=== PATIENT | female | born 1985 | race Caucasian/White ===

== ENCOUNTER 2016-10-01 08:50 | Emergency (ER) | payer OTHER ==
[2016-10-01] MEDS ORDERED: BACLOFEN 10 MG TAB PO STA (09:34)
[2016-10-01] MEDS ORDERED: cloNIDine HCL 0.1 MG TAB PO STA (09:34)
[2016-10-01 09:47] VITALS: BP 118/52; PULSE 51; RESP 16; TEMP 98.7
--- NOTE | 2016-10-01 09:47 | ED ---
General Adult HPI - General Chief complaint: Recheck/Abnormal Lab/Rx Stated complaint: flu like symptoms Time Seen by Provider: 10/01/16 09:28 Source: patient, RN notes reviewed Mode of arrival: ambulatory Limitations: no limitations - History of Present Illness Initial comments: Patient is a 31-year-old female who presents emergency room today with chief complaint withdrawal symptoms. 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 Patient states last dose yesterday. States waking up with shakes chills this morning. Denies any nausea vomiting. Denies any other complaints associated symptoms. Patient denies any recent fever, chills, shortness of breath, chest pain, back pain, abdominal pain, nausea or vomiting, numbness or tingling, dysuria or hematuria, constipation or diarrhea, headaches or visual changes, or any other complaints. - Related Data Previous Rx's Medication Instructions Recorded Albuterol Inhaler [Ventolin Hfa 1 - 2 puff INHALATION Q4-6H PRN #1 07/15/16 Inhaler] inhaler Azithromycin [Zithromax Z-pack] 0 mg PO DIRECTED #6 tab 07/15/16 Benzonatate [Tessalon Perles] 100 mg PO TID PRN #12 capsule 07/15/16 predniSONE 20 mg PO DIRECTED #11 tab 07/15/16 Benzonatate [Tessalon Perles] 100 mg PO TID PRN #15 cap 08/23/16 Baclofen [Lioresal] 5 mg PO TID #15 tablet 10/01/16 cloNIDine HCL [Catapres] 0.1 mg PO BID #10 tab 10/01/16 Allergies Allergy/AdvReac Type Severity Reaction Status Date / Time No Known Allergies Allergy Verified 08/23/16 14:43 Review of Systems ROS Statement: Those systems with pertinent positive or pertinent negative responses have been documented in the HPI. ROS Other: All systems not noted in ROS Statement are negative. Past Medical History Additional Past Medical History / Comment(s): heroin use History of Any Multi-Drug Resistant Organisms: None Reported Past Surgical History: Appendectomy Additional Past Surgical History / Comment(s): 2004 Past Anesthesia/Blood Transfusion Reactions: No Reported Reaction Past Psychological History: No Psychological Hx Reported Smoking Status: Current every day smoker Past Alcohol Use History: None Reported Past Drug Use History: Heroin - Past Family History Father Family Medical History: No Reported History General Exam - General Exam Comments Initial Comments: General: The patient is awake and alert, in no distress, and does not appear acutely ill. Eye: Pupils are equal, round and reactive to light, extra-ocular movements are intact. No nystagmus. There is normal conjunctiva bilaterally. No signs of icterus. Ears, nose, mouth and throat: There are moist mucous membranes and no oral lesions. Neck: The neck is supple, there is no tenderness or JVD. Cardiovascular: There is a regular rate and rhythm. No murmur, rub or gallop is appreciated. Respiratory: Lungs are clear to auscultation, respirations are non-labored, breath sounds are equal. No wheezes, stridor, rales, or rhonchi. Musculoskeletal: Normal ROM, no tenderness. Strength 5/5. Sensation intact. Pulses equal bilaterally 2+. Neurological: A&O x 3. CN II-XII intact, There are no obvious motor or sensory deficits. Coordination appears grossly intact. Speech is normal. Skin: Skin is warm and dry and no rashes or lesions are noted. Psychiatric: Cooperative, appropriate mood & affect, normal judgment. Limitations: no limitations Course Vital Signs 10/01/16 09:01 Temperature 98.2 F Pulse Rate 65 Respiratory 18 Rate Blood Pressure 102/71 O2 Sat by Pulse 100 Oximetry Medical Decision Making - Medical Decision Making Patient be treated with clonidine and baclofen here the emergency room given prescription for home with. Patient advised return if any symptoms increase worsen or for any other concerns. Disposition Clinical Impression: Opiate withdrawal Disposition: HOME SELF-CARE Condition: Good Instructions: Narcotic Abuse (ED) Additional Instructions: Please use medication as discussed. Please follow-up with family doctor in the next 2 days of symptoms have not improved. Please return to emergency room if the symptoms increase or worsen or for any other concerns. Prescriptions: Baclofen [Lioresal] 5 mg PO TID #15 tablet cloNIDine HCL [Catapres] 0.1 mg PO BID #10 tab Referrals: Adelia Foster MD [Primary Care Provider] - 1-2 days Time of Disposition: 09:46
== END 2016-10-01 09:57 | disposition home or self-care (01) ==
LOC: EC 08:50
DX: F11.23 Opioid dependence with withdrawal (principal); F17.200 Nicotine dependence, unspecified, uncomplicated
CPT/HCPCS: 76705; 99283

== ENCOUNTER → 2016-10-01 | Outpatient (CLI) | payer OTHER ==
--- NOTE | 2016-10-01 08:31 | US ---
EXAMINATION TYPE: US liver DATE OF EXAM: 10/01/2016 8:03 AM COMPARISON: CT on PACS CLINICAL HISTORY: Hepatitis C. EXAM MEASUREMENTS: Liver Length: 14.7cm Gallbladder Wall: 0.1cm CBD: 0.4cm Right Kidney: 9.9 x 5.5 x 4.1cm ANATOMY: TECHNOLOGIST IMPRESSION: Pancreas: Within normal limits Liver: Within normal limits Gallbladder: Within normal limits Evidence for sonographic Fairchild's sign: no CBD: Within normal limits Right Kidney: Within normal limits IMPRESSION: 1. Normal right upper quadrant ultrasound. 2. Normal liver
== END | disposition home or self-care (01) ==
LOC: RADUSWWP 07:41
PROVIDERS: ATTEND Internal Medicine
DX: B18.2 Chronic viral hepatitis C (principal)
CPT/HCPCS: 76705

== ENCOUNTER → 2017-07-24 | Outpatient (CLI) | payer OTHER ==
[2017-07-24 12:06] LABS: Basophils % (A) 1 %; CH 30.5; CHCM 32.1; Eosinophils # (A) 0.1 k/uL (0-0.7); Eosinophils % (A) 1 %; HCT 36.5 % (34.0-46.0); HDW 2.65; HGB 12.1 gm/dL (11.4-16.0); Luc # (Auto) 0.14; Luc % (Auto) 3; Lymphocytes % (A) 34 %; MCH 31.5 pg (25.0-35.0); MCV 95.6 fL (80.0-100.0); Monocytes # (A) 0.4 k/uL (0-1.0); Monocytes % (A) 7 %; Neutrophils # (A) 3.2 k/uL (1.3-7.7); Neutrophils % (A) 55 %; RBC 3.82 m/uL (3.80-5.40); RDW 14.3 % (11.5-15.5); WBC 5.8 k/uL (3.8-10.6); WBC (Perox) 6.05
[2017-07-24 12:30] LABS: ALT 76 U/L (9-52); AST 42 U/L (14-36); Alkaline Phosphatase 47 U/L (38-126); Anion Gap 5 mmol/L; Blood Urea Nitrogen 17 mg/dL (7-17); Calcium 9.6 mg/dL (8.4-10.2); Carbon Dioxide 28 mmol/L (22-30); Chloride 107 mmol/L (98-107); Glucose 74 mg/dL (74-99); Non-African American GFR(MDRD) >60 (>60 ml/min/1.73 sqM); Potassium 4.7 mmol/L (3.5-5.1); Sodium 140 mmol/L (137-145); Total Bilirubin 0.6 mg/dL (0.2-1.3); Total Protein 7.3 g/dL (6.3-8.2)
[2017-07-26 10:46] LABS: HCV Qualitative Result DETECTED (Not detected)
== END | disposition home or self-care (01) ==
LOC: LABWHC1 11:15
DX: B18.2 Chronic viral hepatitis C (principal)
CPT/HCPCS: 36415; 80053; 85025; 87522; 87902

== ENCOUNTER 2018-08-09 02:40 | Emergency (ER) | payer OTHER ==
[2018-08-09 02:47] VITALS: BP 112/62; PULSE 75; RESP 18; TEMP 98.4
--- NOTE | 2018-08-09 02:50 | ED ---
Fall HPI - General Chief Complaint: Fall Stated Complaint: ETOH/Fall Time Seen by Provider: 08/09/18 02:41 Source: EMS Mode of arrival: EMS - History of Present Illness Initial Comments: This is a 33-year-old female who presents emergency department after a reported fall. The patient apparently has been drinking alcohol this evening and was having difficulty with ambulation. She was with a friend when she was stumbling and fell and hit her head. The patient states that she did not lose consciousness. She states that she does have pain in the posterior scalp. Denies any headache, nausea, or vomiting. She is otherwise been speaking normally and moving all extremities per EMS. She states that she does not take a blood thinner. She denies any other injuries. She states that she was brought here just to be checked out. - Related Data Previous Rx's Medication Instructions Recorded Albuterol Inhaler [Ventolin Hfa 1 - 2 puff INHALATION Q4-6H PRN #1 07/15/16 Inhaler] inhaler Azithromycin [Zithromax Z-pack] 0 mg PO DIRECTED #6 tab 07/15/16 Benzonatate [Tessalon Perles] 100 mg PO TID PRN #12 capsule 07/15/16 predniSONE 20 mg PO DIRECTED #11 tab 07/15/16 Benzonatate [Tessalon Perles] 100 mg PO TID PRN #15 cap 08/23/16 Baclofen [Lioresal] 5 mg PO TID #15 tablet 10/01/16 cloNIDine HCL [Catapres] 0.1 mg PO BID #10 tab 10/01/16 Allergies Allergy/AdvReac Type Severity Reaction Status Date / Time No Known Allergies Allergy Verified 08/09/18 02:47 Review of Systems ROS Statement: Those systems with pertinent positive or pertinent negative responses have been documented in the HPI. ROS Other: All systems not noted in ROS Statement are negative. Past Medical History Additional Past Medical History / Comment(s): heroin use History of Any Multi-Drug Resistant Organisms: None Reported Past Surgical History: Appendectomy Additional Past Surgical History / Comment(s): 2004 Past Anesthesia/Blood Transfusion Reactions: No Reported Reaction Past Psychological History: No Psychological Hx Reported Smoking Status: Current every day smoker Past Alcohol Use History: Daily Past Drug Use History: Heroin - Past Family History Father Family Medical History: No Reported History General Exam - General Exam Comments Initial Comments: Constitutional: Awake alert Appears comfortable Head: Normocephalic, there is a small hematoma to the right posterior scalp Eyes: no conjunctival injection No scleral icterus EOMI, pupils are 4 mm reactive bilaterally Neck: No JVD Supple Heart: Regular rate rhythm normal S1-S2 no murmurs Lungs: Clear to auscultation bilaterally No wheezing No rales Abdomen: Soft nondistended nontender Extremities: Non edematous DP pulses intact Radial pulses intact Neuro: A&Ox3, patient has intoxicated speech however is able to answer questions appropriately, moves all extremities without difficulty. No focal neurologic deficits Psych: Appropriate mood and affect Limitations: no limitations Course Vital Signs 08/09/18 02:41 Temperature 98.4 F Pulse Rate 75 Respiratory 18 Rate Blood Pressure 112/62 O2 Sat by Pulse 100 Oximetry Disposition Clinical Impression: Alcohol intoxication, Scalp hematoma Disposition: HOME SELF-CARE Condition: Stable Instructions: Head Injury (ED) Is patient prescribed a controlled substance at d/c from ED?: No Referrals: None,Stated [Primary Care Provider] - 1-2 days
--- NOTE | 2018-08-09 03:36 | CT ---
EXAMINATION TYPE: CT brain wo con DATE OF EXAM: 08/09/2018 COMPARISON: None HISTORY: pt. states she fell and hit her head;denies any LOC CT DLP: 1083.4 mGycm. Automated Exposure Control for Dose Reduction was Utilized. TECHNIQUE: CT scan of the head is performed without contrast. FINDINGS: Ventricles and sulci appear normal. There is no mass effect nor midline shift. There is no sign of intracranial hemorrhage. The calvarium is intact. There is right parietal occipital scalp hem atoma. IMPRESSION: Normal CT scan of the brain. Right-sided scalp hematoma.
== END 2018-08-09 03:45 | disposition home or self-care (01) ==
LOC: EC 02:40
DX: S00.03XA Contusion of scalp, initial encounter (principal); F10.129 Alcohol abuse with intoxication, unspecified; F17.200 Nicotine dependence, unspecified, uncomplicated; W01.10XA Fall on same level from slipping, tripping and stumbling with subsequent striking against unspecified object, initial encounter; Y92.480 Sidewalk as the place of occurrence of the external cause
CPT/HCPCS: 70450; 99284

== ENCOUNTER 2018-09-25 17:10 | Emergency (ER) | payer OTHER ==
[2018-09-25 17:31] VITALS: TEMP 98.5
[2018-09-25 19:05] LABS: Basophils # (A) 0.1 k/uL (0-0.2); Basophils % (A) 1 %; Eosinophils # (A) 0.1 k/uL (0-0.7); Eosinophils % (A) 2 %; HCT 41.2 % (34.0-46.0); HGB 13.9 gm/dL (11.4-16.0); Lymphocytes % (A) 24 %; MCH 31.9 pg (25.0-35.0); MCHC 33.8 g/dL (31.0-37.0); MCV 94.3 fL (80.0-100.0); Mean Platelet Volume 7.8; Monocytes # (A) 0.4 k/uL (0-1.0); Monocytes % (A) 5 %; Neutrophils # (A) 5.6 k/uL (1.3-7.7); Neutrophils % (A) 67 %; Platelet Count 234 k/uL (150-450); RBC 4.36 m/uL (3.80-5.40); RDW 14.1 % (11.5-15.5); WBC 8.3 k/uL (3.8-10.6)
--- NOTE | 2018-09-25 19:18 | US ---
EXAMINATION TYPE: US transvaginal DATE OF EXAM: 09/25/2018 COMPARISON: NONE CLINICAL HISTORY: Pain. Pain and bleeding. TECHNIQUE: Transvaginal (TV). EXAM MEASUREMENTS: Uterus: 9.2 x 5.3 x 6.3 cm Endometrial Stripe: 1.0 cm Right Ovary: 7.1 x 3.5 x 4.4 cm Left Ovary: 4.1 x 2.7 x 2.9 cm 1. Uterus: Anteverted wnl 2. Endometrium: wnl 3. Right Ovary: Enlarged multiple cysts seen. Largest with a septation measuring 4.5 x 2.9 x 3.8cm. 4. Left Ovary: wnl Spectral, color and waveform doppler imaging shows good arterial and venous flow within the ovaries ; there is no evidence for ovarian torsion. 5. Bilateral Adnexa: wnl 6. Posterior cul-de-sac: wnl IMPRESSION: Multiple right ovarian cysts. No evidence of ovarian torsion. Normal uterus and endometri um.
[2018-09-25 19:20] LABS: ALT 77 U/L (9-52); AST 64 U/L (14-36); Albumin 4.2 g/dL (3.5-5.0); Alkaline Phosphatase 58 U/L (38-126); Anion Gap 9 mmol/L; Blood Urea Nitrogen 21 mg/dL (7-17); Calcium 10.1 mg/dL (8.4-10.2); Carbon Dioxide 27 mmol/L (22-30); Chloride 106 mmol/L (98-107); Glucose 93 mg/dL (74-99); Potassium 5.1 mmol/L (3.5-5.1); Sodium 142 mmol/L (137-145); Total Bilirubin 0.5 mg/dL (0.2-1.3); Total Protein 7.5 g/dL (6.3-8.2)
[2018-09-25 19:34] LABS: HCG,Qualitative Serum Detected
--- NOTE | 2018-09-25 20:16 | ED ---
Female Urogenital HPI - General Chief complaint: Vaginal Bleeding Stated complaint: vaginal bleeding Time Seen by Provider: 09/25/18 17:47 Source: patient, RN notes reviewed, old records reviewed Mode of arrival: ambulatory Limitations: no limitations - History of Present Illness Initial comments: 33-year-old female presents response to plan of vaginal bleeding for 1 month. She reports intermittent bleeding. Patient is a Her last menstrual period Was in July. Patient states she is concerned that she may possibly be having miscarriages. She had no tests at home for the past 2 months. Patient states that she's had some generalized of lower cramping. She states that she's been having prolonged bleeding for the past month. She denies any fevers or chills. She denies any change in urination or bowel habits. Last Menstrual Period: 08/22/18 - Related Data Home Medications Medication Instructions Recorded Confirmed No Known Home Medications 09/25/18 09/25/18 Allergies Allergy/AdvReac Type Severity Reaction Status Date / Time No Known Allergies Allergy Verified 09/25/18 18:37 Review of Systems ROS Statement: Those systems with pertinent positive or pertinent negative responses have been documented in the HPI. ROS Other: All systems not noted in ROS Statement are negative. Past Medical History Additional Past Medical History / Comment(s): heroin use History of Any Multi-Drug Resistant Organisms: None Reported Past Surgical History: Appendectomy Additional Past Surgical History / Comment(s): 2005 Past Anesthesia/Blood Transfusion Reactions: No Reported Reaction Past Psychological History: No Psychological Hx Reported Smoking Status: Current every day smoker Past Alcohol Use History: Daily Past Drug Use History: Heroin - Past Family History Father Family Medical History: No Reported History General Exam - General Exam Comments Initial Comments: (33-year-old female. Alert and oriented. No distress. Limitations: no limitations Head exam: Present: atraumatic, normocephalic, normal inspection Eye exam: Present: normal appearance, PERRL, EOMI. Absent: scleral icterus, conjunctival injection, periorbital swelling ENT exam: Present: normal exam, mucous membranes moist Neck exam: Present: normal inspection. Absent: tenderness, meningismus, lymphadenopathy Respiratory exam: Present: normal lung sounds bilaterally. Absent: respiratory distress, wheezes, rales, rhonchi, stridor Cardiovascular Exam: Present: regular rate, normal rhythm, normal heart sounds. Absent: systolic murmur, diastolic murmur, rubs, gallop, clicks GI/Abdominal exam: Present: soft, normal bowel sounds. Absent: distended, tenderness, guarding, rebound, rigid External exam: Present: normal external exam Speculum exam: Present: vaginal bleeding. Absent: normal speculum exam By manual exam: Present: normal by manual exam. Absent: cervical motion tenderness, adnexal tenderness, adnexal mass, uterine enlargement Extremities exam: Present: normal inspection, full ROM, normal capillary refill. Absent: tenderness, pedal edema, joint swelling, calf tenderness Back exam: Present: normal inspection Neurological exam: Present: alert, oriented X3, CN II-XII intact Psychiatric exam: Present: normal affect, normal mood Skin exam: Present: warm, dry, intact, normal color. Absent: rash Course Vital Signs 09/25/18 09/25/18 17:29 21:30 Temperature 98.5 F Pulse Rate 74 56 L Respiratory 20 16 Rate Blood Pressure 110/74 103/65 O2 Sat by Pulse 99 99 Oximetry Medical Decision Making - Medical Decision Making 33 year old female with one month of vaginal bleeding. Patient HCG qualititavie was positive, serum quant is 280. A positive blood type. She does have bleeding on pelvic exam. Patient US shows no IUP, and evidence of R ovarian cyst. Patient case discussed with Dr. Houston. Patient is likely having threatened miscarriage. She has seen Dr. Caceres for past , discussed follow up. Dr. Houston did not want to call OB at this time, as patient already has had care with Dr. Caceres. Discussed return parameters. Written for repeat HCG. - Lab Data Result diagrams: 09/25/18 18:26 09/25/18 18:26 Lab Results 09/25/18 09/25/18 09/25/18 Range/Units 18:26 18:26 18:26 WBC 8.3 (3.8-10.6) k/uL RBC 4.36 (3.80-5.40) m/uL Hgb 13.9 (11.4-16.0) gm/dL Hct 41.2 (34.0-46.0) % MCV 94.3 (80.0-100.0) fL MCH 31.9 (25.0-35.0) pg MCHC 33.8 (31.0-37.0) g/dL RDW 14.1 (11.5-15.5) % Plt Count 234 (150-450) k/uL Neutrophils % 67 % Lymphocytes % 24 % Monocytes % 5 % Eosinophils % 2 % Basophils % 1 % Neutrophils # 5.6 (1.3-7.7) k/uL Lymphocytes # 2.0 (1.0-4.8) k/uL Monocytes # 0.4 (0-1.0) k/uL Eosinophils # 0.1 (0-0.7) k/uL Basophils # 0.1 (0-0.2) k/uL Sodium 142 (137-145) mmol/L Potassium 5.1 (3.5-5.1) mmol/L Chloride 106 (98-107) mmol/L Carbon Dioxide 27 (22-30) mmol/L Anion Gap 9 mmol/L BUN 21 H (7-17) mg/dL Creatinine 0.70 (0.52-1.04) mg/dL Est GFR (CKD-EPI)AfAm >90 (>60 ml/min/1.73 sqM) Est GFR (CKD-EPI)NonAf >90 (>60 ml/min/1.73 sqM) Glucose 93 (74-99) mg/dL Calcium 10.1 (8.4-10.2) mg/dL Total Bilirubin 0.5 (0.2-1.3) mg/dL AST 64 H (14-36) U/L ALT 77 H (9-52) U/L Alkaline Phosphatase 58 (38-126) U/L Total Protein 7.5 (6.3-8.2) g/dL Albumin 4.2 (3.5-5.0) g/dL HCG, Qual Detected HCG, Quant 280.4 mIU/mL Urine Color Urine Appearance (Clear) Urine pH (5.0-8.0) Ur Specific [place] (1.001-1.035) Urine Protein (Negative) Urine Glucose (UA) (Negative) Urine Ketones (Negative) Urine Blood (Negative) Urine Nitrite (Negative) Urine Bilirubin (Negative) Urine Urobilinogen (<2.0) mg/dL Ur Leukocyte Esterase (Negative) Trichomonas Ag (Rapid) (Negative) Blood Type Blood Type Recheck 09/25/18 09/25/18 09/25/18 Range/Units 18:26 20:18 20:18 WBC (3.8-10.6) k/uL RBC (3.80-5.40) m/uL Hgb (11.4-16.0) gm/dL Hct (34.0-46.0) % MCV (80.0-100.0) fL MCH (25.0-35.0) pg MCHC (31.0-37.0) g/dL RDW (11.5-15.5) % Plt Count (150-450) k/uL Neutrophils % % Lymphocytes % % Monocytes % % Eosinophils % % Basophils % % Neutrophils # (1.3-7.7) k/uL Lymphocytes # (1.0-4.8) k/uL Monocytes # (0-1.0) k/uL Eosinophils # (0-0.7) k/uL Basophils # (0-0.2) k/uL Sodium (137-145) mmol/L Potassium (3.5-5.1) mmol/L Chloride (98-107) mmol/L Carbon Dioxide (22-30) mmol/L Anion Gap mmol/L BUN (7-17) mg/dL Creatinine (0.52-1.04) mg/dL Est GFR (CKD-EPI)AfAm (>60 ml/min/1.73 sqM) Est GFR (CKD-EPI)NonAf (>60 ml/min/1.73 sqM) Glucose (74-99) mg/dL Calcium (8.4-10.2) mg/dL Total Bilirubin (0.2-1.3) mg/dL AST (14-36) U/L ALT (9-52) U/L Alkaline Phosphatase (38-126) U/L Total Protein (6.3-8.2) g/dL Albumin (3.5-5.0) g/dL HCG, Qual HCG, Quant mIU/mL Urine Color Yellow Urine Appearance Clear (Clear) Urine pH 6.5 (5.0-8.0) Ur Specific [place] 1.024 (1.001-1.035) Urine Protein Trace H (Negative) Urine Glucose (UA) Negative (Negative) Urine Ketones Negative (Negative) Urine Blood Negative (Negative) Urine Nitrite Negative (Negative) Urine Bilirubin Negative (Negative) Urine Urobilinogen <2.0 (<2.0) mg/dL Ur Leukocyte Esterase Negative (Negative) Trichomonas Ag (Rapid) Negative (Negative) Blood Type A Positive Blood Type Recheck No - Radiology Data Radiology results: report reviewed Multiple right ovarian cysts. No evidence of ovarian torsion. Normal uterus and endometrium. Disposition Clinical Impression: Threatened miscarriage Disposition: HOME SELF-CARE Condition: Good Instructions: Threatened Miscarriage (ED) Additional Instructions: Patient has a close follow-up with primary care provider and OBGYN. Return to emergency department if any alarming signs or symptoms occur. Repeat her hCG level in 2 days. Is patient prescribed a controlled substance at d/c from ED?: No Referrals: None,Stated [Primary Care Provider] - 1-2 days Haven Caceres DO [Doctor of Osteopathic Medicine] - 1-2 days Time of Disposition: 20:47
[2018-09-25 20:38] LABS: Appearance,Urine Clear (Clear); Bilirubin,Urine Negative (Negative); Blood,Urine Negative (Negative); Color,Urine Yellow; Glucose,Urine (UA) Negative (Negative); Ketones,Urine Negative (Negative); Leukocyte Esterase,Urine Negative (Negative); Nitrite,Urine Negative (Negative); PH, Urine 6.5 (5.0-8.0); Protein,Urine Trace (Negative); Specific Gravity,Urine 1.024 (1.001-1.035); Urobilinogen,Urine <2.0 mg/dL (<2.0)
[2018-09-25 21:31] VITALS: BP 103/65; PULSE 56; RESP 16
[2018-09-28 08:48] LABS: C. trachomatis,PCR Negative (Neg,Equiv); Chlamydia trachomatis Source Vagina; N. gonorrhoeae,PCR Negative (Neg,Equiv); Neisseria Source Vagina
== END 2018-09-25 21:30 | disposition home or self-care (01) ==
LOC: EC 17:10
DX: O20.0 Threatened abortion (principal); O34.80 Maternal care for other abnormalities of pelvic organs, unspecified trimester; N83.201 Unspecified ovarian cyst, right side; Z67.10 Type A blood, Rh positive; Z32.01 Encounter for pregnancy test, result positive; O99.330 Smoking (tobacco) complicating pregnancy, unspecified trimester; F17.200 Nicotine dependence, unspecified, uncomplicated; Z90.49 Acquired absence of other specified parts of digestive tract; Z3A.00 Weeks of gestation of pregnancy not specified
CPT/HCPCS: 36415; 76830; 80053; 81003; 84702; 84703; 85025; 86900; 86901; 87070; 87205; 87491; 87591; 87808; 93975; 99284

== ENCOUNTER → 2018-09-27 | Outpatient (CLI) | payer OTHER | END | disposition home or self-care (01) | LOC: LABMAIN 15:37 | PROVIDERS: ATTEND Physician Assistant Medical | DX: O20.0 Threatened abortion (principal); Z3A.00 Weeks of gestation of pregnancy not specified | CPT/HCPCS: 36415; 84702 ==

== ENCOUNTER 2019-06-16 09:26 | Emergency (ER) | payer OTHER ==
[2019-06-16 09:35] VITALS: BP 113/70; PULSE 100; RESP 18; TEMP 98.4
--- NOTE | 2019-06-16 10:05 | ED ---
General Adult HPI - General Chief complaint: Recheck/Abnormal Lab/Rx Stated complaint: Wants test Time Seen by Provider: 06/16/19 09:47 Source: patient, RN notes reviewed Mode of arrival: ambulatory Limitations: no limitations - History of Present Illness Initial comments: Patient is a pleasant 34-year-old female presenting to the emergency department with concerns for possible . Patient states her last menstrual cycle was either 1 or 2 months ago, she is just not sure. Patient states normally she is regular. Patient denies any vaginal bleeding. No pelvic pain. No back pain. No urinary symptoms. No vomiting however patient has had some nausea. Patient requests test for . - Related Data Home Medications Medication Instructions Recorded Confirmed No Known Home Medications 09/25/18 06/16/19 Allergies Allergy/AdvReac Type Severity Reaction Status Date / Time No Known Allergies Allergy Verified 06/16/19 09:40 Review of Systems ROS Statement: Those systems with pertinent positive or pertinent negative responses have been documented in the HPI. ROS Other: All systems not noted in ROS Statement are negative. Constitutional: Denies: fever Eyes: Denies: eye pain ENT: Reports: congestion. Denies: ear pain Respiratory: Denies: cough Cardiovascular: Denies: chest pain Endocrine: Denies: fatigue Gastrointestinal: Reports: nausea. Denies: abdominal pain, vomiting Genitourinary: Denies: dysuria Musculoskeletal: Denies: back pain Skin: Denies: rash Neurological: Denies: weakness Past Medical History Additional Past Medical History / Comment(s): heroin use History of Any Multi-Drug Resistant Organisms: None Reported Past Surgical History: Appendectomy Additional Past Surgical History / Comment(s): 2004 Past Anesthesia/Blood Transfusion Reactions: No Reported Reaction Past Psychological History: No Psychological Hx Reported Smoking Status: Current every day smoker Past Alcohol Use History: Daily, Occasional Past Drug Use History: None Reported, Heroin - Past Family History Father Family Medical History: No Reported History General Exam Limitations: no limitations General appearance: alert, in no apparent distress Head exam: Present: normocephalic Eye exam: Present: normal appearance Neck exam: Present: normal inspection Respiratory exam: Present: normal lung sounds bilaterally Cardiovascular Exam: Present: regular rate, normal rhythm GI/Abdominal exam: Present: soft. Absent: distended, tenderness, guarding, rebound, rigid Extremities exam: Present: normal inspection. Absent: pedal edema, calf tenderness Neurological exam: Present: alert Psychiatric exam: Present: normal affect, normal mood Skin exam: Present: normal color Course Vital Signs 06/16/19 09:33 Temperature 98.4 F Pulse Rate 100 Respiratory 18 Rate Blood Pressure 113/70 O2 Sat by Pulse 96 Oximetry Medical Decision Making - Medical Decision Making Patient updated - Lab Data Lab Results 06/16/19 06/16/19 Range/Units 09:35 09:35 Urine Color Yellow Urine Appearance Cloudy H (Clear) Urine pH 5.5 (5.0-8.0) Ur Specific [place] 1.024 (1.001-1.035) Urine Protein Trace H (Negative) Urine Glucose (UA) Negative (Negative) Urine Ketones Trace H (Negative) Urine Blood Negative (Negative) Urine Nitrite Negative (Negative) Urine Bilirubin Negative (Negative) Urine Urobilinogen <2.0 (<2.0) mg/dL Ur Leukocyte Esterase Small H (Negative) Urine RBC <1 (0-5) /hpf Urine WBC 3 (0-5) /hpf Ur Squamous Epith Cells 22 H (0-4) /hpf Urine Bacteria Rare H (None) /hpf Urine Mucus Few H (None) /hpf Urine HCG, Qual Detected (Not Detectd) Disposition Clinical Impression: Disposition: HOME SELF-CARE Condition: Stable Instructions (If sedation given, give patient instructions): (ED) Additional Instructions: Please follow-up with [facility] this week. Return for pelvic pain, vaginal bleeding, worsening symptoms or other concerns. Is patient prescribed a controlled substance at d/c from ED?: No Referrals: Fan Mccracken MD [Primary Care Provider] - 1-2 days Mary Lou Richey MD [STAFF PHYSICIAN] - 1-2 days Tonie Mazariegos MD [STAFF PHYSICIAN] - 1-2 days Decision Time: 10:26
[2019-06-16 10:14] LABS: Appearance,Urine Cloudy (Clear); Bacteria,Urine Rare /hpf; Bilirubin,Urine Negative (Negative); Blood,Urine Negative (Negative); Color,Urine Yellow; Glucose,Urine (UA) Negative (Negative); Ketones,Urine Trace (Negative); Leukocyte Esterase,Urine Small (Negative); Mucus,Urine Few /hpf; Nitrite,Urine Negative (Negative); PH, Urine 5.5 (5.0-8.0); Protein,Urine Trace (Negative); RBC,Urine <1 /hpf (0-5); Specific Gravity,Urine 1.024 (1.001-1.035); Squamous Epithelial Cell,Urine 22 /hpf (0-4); Urobilinogen,Urine <2.0 mg/dL (<2.0); WBC,Urine 3 /hpf (0-5)
== END 2019-06-16 10:25 | disposition home or self-care (01) ==
LOC: EC 09:26
DX: O99.89 Other specified diseases and conditions complicating pregnancy, childbirth and the puerperium (principal); R11.0 Nausea; O99.330 Smoking (tobacco) complicating pregnancy, unspecified trimester; F17.200 Nicotine dependence, unspecified, uncomplicated; Z3A.00 Weeks of gestation of pregnancy not specified
CPT/HCPCS: 81001; 81025; 99283

== ENCOUNTER 2019-06-26 00:59 | Emergency (ER) | payer OTHER ==
[2019-06-26 01:14] VITALS: PULSE 80; RESP 18; TEMP 97.9
[2019-06-26] MEDS ORDERED: SODIUM CHLORIDE 0.9% 1,000 ML IV STA (01:37)
[2019-06-26] MEDS ORDERED: ACETAMINOPHEN TAB 325 MG TAB PO STA (01:37)
--- NOTE | 2019-06-26 02:10 | ED ---
Abdominal Pain HPI - General Chief Complaint: Abdominal Pain Stated Complaint: Abd Pain 16 wks Time Seen by Provider: 06/26/19 01:22 Source: patient, family Mode of arrival: ambulatory Limitations: no limitations - History of Present Illness Initial Comments: 34-year-old female patient who is approximately 16 weeks presents to the emergency department today for evaluation of lower abdominal pain or low back pain. She is , with one spontaneous and 2 elective abortions. Patient states symptoms started yesterday evening. She denies any abnormal vaginal bleeding or discharge. Denies any hematuria, dysuria, urinary agnieszka quency, urinary urgency. She denies any constipation or diarrhea. Denies any history of abdominal surgery. States that she does have an upcoming appointment with Dr. Caceres. States she has not had care up to this point. Patient denies any recent rash, fever, chills, shortness breath, chest pain, numbness, tingling, dizziness, weakness, headache, visual changes, or any other complaints . - Related Data Previous Rx's Medication Instructions Recorded Pnv No.95/Ferrous Fum/Folic AC 1 each PO DAILY #30 tablet 06/26/19 [ Multivitamin Tablet] Allergies Allergy/AdvReac Type Severity Reaction Status Date / Time No Known Allergies Allergy Verified 06/26/19 01:13 Review of Systems ROS Statement: Those systems with pertinent positive or pertinent negative responses have been documented in the HPI. ROS Other: All systems not noted in ROS Statement are negative. Past Medical History Additional Past Medical History / Comment(s): heroin use History of Any Multi-Drug Resistant Organisms: None Reported Past Surgical History: Appendectomy Additional Past Surgical History / Comment(s): 2004 Past Anesthesia/Blood Transfusion Reactions: No Reported Reaction Past Psychological History: No Psychological Hx Reported Smoking Status: Current every day smoker Past Alcohol Use History: Daily, Occasional Past Drug Use History: Heroin - Past Family History Father Family Medical History: No Reported History General Exam Limitations: no limitations General appearance: alert, in no apparent distress, other (This is a well- developed, well-nourished adult female patient in no acute distress. Vital signs upon presentation are temperature 97.9F, pulse 80, respirations 18, blood pressure 102/62, pulse ox 99% on room air.) Eye exam: Present: normal appearance, PERRL, EOMI. Absent: scleral icterus, conjunctival injection, periorbital swelling ENT exam: Present: normal exam, normal oropharynx, mucous membranes moist Respiratory exam: Present: normal lung sounds bilaterally. Absent: respiratory distress, wheezes, rales, rhonchi, stridor Cardiovascular Exam: Present: regular rate, normal rhythm, normal heart sounds. Absent: systolic murmur, diastolic murmur, rubs, gallop, clicks GI/Abdominal exam: Present: soft, tenderness (Superpubic tenderness), normal bowel sounds. Absent: distended, guarding, rebound, rigid Neurological exam: Present: alert, oriented X3, CN II-XII intact Psychiatric exam: Present: normal affect, normal mood Skin exam: Present: warm, dry, intact, normal color. Absent: rash Course Vital Signs 06/26/19 06/26/19 01:09 03:32 Temperature 97.9 F Pulse Rate 80 80 Respiratory 18 18 Rate Blood Pressure 102/62 112/73 O2 Sat by Pulse 99 100 Oximetry Medical Decision Making - Medical Decision Making 34-year-old female patient who is 17 weeks presents to the emergency department today for evaluation of lower abdominal pain and low back pain. Physical examination is unremarkable. She is afebrile normal vital signs. Labs reviewed and were unremarkable. Urinalysis shows no sign of infection. She denied vaginal bleeding or discharge. Ultrasound was obtained and showed a viable intrauterine measuring 17 weeks. Heart rate was is satisfactory. She has some lab abnormalities concerning for dehydration. She was given IV fluids. Upon reevaluation is report improvement of symptoms. She'll be discharged at this time to follow-up with her TEST PULLER for recheck as soon as possible. Did send a vitamin with iron to her pharmacy. Return parameters were discussed in detail. She verbalizes understanding and agrees with this plan. - Lab Data Result diagrams: 06/26/19 01:50 06/26/19 01:50 Lab Results 06/26/19 06/26/19 06/26/19 Range/Units 01:50 01:50 01:50 WBC 7.5 (3.8-10.6) k/uL RBC 3.34 L (3.80-5.40) m/uL Hgb 10.8 L (11.4-16.0) gm/dL Hct 31.3 L (34.0-46.0) % MCV 93.6 (80.0-100.0) fL MCH 32.4 (25.0-35.0) pg MCHC 34.6 (31.0-37.0) g/dL RDW 13.5 (11.5-15.5) % Plt Count 195 (150-450) k/uL Neutrophils % 70 % Lymphocytes % 21 % Monocytes % 6 % Eosinophils % 1 % Basophils % 0 % Neutrophils # 5.3 (1.3-7.7) k/uL Lymphocytes # 1.6 (1.0-4.8) k/uL Monocytes # 0.4 (0-1.0) k/uL Eosinophils # 0.1 (0-0.7) k/uL Basophils # 0.0 (0-0.2) k/uL Sodium 141 (137-145) mmol/L Potassium 3.9 (3.5-5.1) mmol/L Chloride 108 H (98-107) mmol/L Carbon Dioxide 23 (22-30) mmol/L Anion Gap 10 mmol/L BUN 14 (7-17) mg/dL Creatinine 0.50 L (0.52-1.04) mg/dL Est GFR (CKD-EPI)AfAm >90 (>60 ml/min/1.73 sqM) Est GFR (CKD-EPI)NonAf >90 (>60 ml/min/1.73 sqM) Glucose 84 (74-99) mg/dL Calcium 9.4 (8.4-10.2) mg/dL Total Bilirubin 0.4 (0.2-1.3) mg/dL AST 31 (14-36) U/L ALT 31 (9-52) U/L Alkaline Phosphatase 44 (38-126) U/L Total Protein 6.8 (6.3-8.2) g/dL Albumin 3.8 (3.5-5.0) g/dL Amylase 83 (30-110) U/L Lipase 106 (23-300) U/L Urine Color Yellow Urine Appearance Clear (Clear) Urine pH 6.0 (5.0-8.0) Ur Specific Prospect 1.031 (1.001-1.035) Urine Protein 1+ H (Negative) Urine Glucose (UA) Negative (Negative) Urine Ketones 3+ H (Negative) Urine Blood Negative (Negative) Urine Nitrite Negative (Negative) Urine Bilirubin Negative (Negative) Urine Urobilinogen 3.0 (<2.0) mg/dL Ur Leukocyte Esterase Negative (Negative) Urine RBC 1 (0-5) /hpf Urine WBC 3 (0-5) /hpf Ur Squamous Epith Cells 5 H (0-4) /hpf Urine Mucus Few H (None) /hpf Urine Opiates Screen (NotDetected) Ur Oxycodone Screen (NotDetected) Urine Methadone Screen (NotDetected) Ur Propoxyphene Screen (NotDetected) Ur Barbiturates Screen (NotDetected) U Tricyclic Antidepress (NotDetected) Ur Phencyclidine Scrn (NotDetected) Ur Amphetamines Screen (NotDetected) U Methamphetamines Scrn (NotDetected) U Benzodiazepines Scrn (NotDetected) Urine Cocaine Screen (NotDetected) U Marijuana (THC) Screen (NotDetected) 06/26/19 Range/Units 01:50 WBC (3.8-10.6) k/uL RBC (3.80-5.40) m/uL Hgb (11.4-16.0) gm/dL Hct (34.0-46.0) % MCV (80.0-100.0) fL MCH (25.0-35.0) pg MCHC (31.0-37.0) g/dL RDW (11.5-15.5) % Plt Count (150-450) k/uL Neutrophils % % Lymphocytes % % Monocytes % % Eosinophils % % Basophils % % Neutrophils # (1.3-7.7) k/uL Lymphocytes # (1.0-4.8) k/uL Monocytes # (0-1.0) k/uL Eosinophils # (0-0.7) k/uL Basophils # (0-0.2) k/uL Sodium (137-145) mmol/L Potassium (3.5-5.1) mmol/L Chloride (98-107) mmol/L Carbon Dioxide (22-30) mmol/L Anion Gap mmol/L BUN (7-17) mg/dL Creatinine (0.52-1.04) mg/dL Est GFR (CKD-EPI)AfAm (>60 ml/min/1.73 sqM) Est GFR (CKD-EPI)NonAf (>60 ml/min/1.73 sqM) Glucose (74-99) mg/dL Calcium (8.4-10.2) mg/dL Total Bilirubin (0.2-1.3) mg/dL AST (14-36) U/L ALT (9-52) U/L Alkaline Phosphatase (38-126) U/L Total Protein (6.3-8.2) g/dL Albumin (3.5-5.0) g/dL Amylase (30-110) U/L Lipase (23-300) U/L Urine Color Urine Appearance (Clear) Urine pH (5.0-8.0) Ur Specific Prospect (1.001-1.035) Urine Protein (Negative) Urine Glucose (UA) (Negative) Urine Ketones (Negative) Urine Blood (Negative) Urine Nitrite (Negative) Urine Bilirubin (Negative) Urine Urobilinogen (<2.0) mg/dL Ur Leukocyte Esterase (Negative) Urine RBC (0-5) /hpf Urine WBC (0-5) /hpf Ur Squamous Epith Cells (0-4) /hpf Urine Mucus (None) /hpf Urine Opiates Screen Not Detected (NotDetected) Ur Oxycodone Screen Not Detected (NotDetected) Urine Methadone Screen Not Detected (NotDetected) Ur Propoxyphene Screen Not Detected (NotDetected) Ur Barbiturates Screen Not Detected (NotDetected) U Tricyclic Antidepress Not Detected (NotDetected) Ur Phencyclidine Scrn Not Detected (NotDetected) Ur Amphetamines Screen Not Detected (NotDetected) U Methamphetamines Scrn Not Detected (NotDetected) U Benzodiazepines Scrn Not Detected (NotDetected) Urine Cocaine Screen Not Detected (NotDetected) U Marijuana (THC) Screen Not Detected (NotDetected) - Radiology Data Radiology results: report reviewed Ultrasound was obtained. Report was reviewed in its entirety. Impression by Dr. Fraga shows ultrasound gestational age of 17 weeks and 6 days. Amniotic fluid is adequate. No complicating process seen. Disposition Clinical Impression: Abdominal pain in Disposition: HOME SELF-CARE Condition: Good Instructions (If sedation given, give patient instructions): Dehydration (ED), Abdominal Pain in (ED) Additional Instructions: Increase fluids. Rest. Follow-up with your TEST PULLER for recheck as soon as possible. Return to the emergency department immediately for any new, worsening, or concerning symptoms. Prescriptions: Pnv No.95/Ferrous Fum/Folic AC [ Multivitamin Tablet] 1 each PO DAILY #3 0 tablet Is patient prescribed a controlled substance at d/c from ED?: No Referrals: Haven Caceres DO [Doctor of Osteopathic Medicine] - 1-2 days Time of Disposition: 03:14
[2019-06-26 02:20] LABS: ALT 31 U/L (9-52); AST 31 U/L (14-36); African American GFR (CKD) >90 (>60 ml/min/1.73 sqM); Albumin 3.8 g/dL (3.5-5.0); Alkaline Phosphatase 44 U/L (38-126); Amylase 83 U/L (30-110); Anion Gap 10 mmol/L; Appearance,Urine Clear (Clear); Bilirubin,Urine Negative (Negative); Blood Urea Nitrogen 14 mg/dL (7-17); Blood,Urine Negative (Negative); Calcium 9.4 mg/dL (8.4-10.2); Carbon Dioxide 23 mmol/L (22-30); Chloride 108 mmol/L (98-107); Color,Urine Yellow; Glucose 84 mg/dL (74-99); Glucose,Urine (UA) Negative (Negative); Ketones,Urine 3+ (Negative); Leukocyte Esterase,Urine Negative (Negative); Mucus,Urine Few /hpf; Nitrite,Urine Negative (Negative); Potassium 3.9 mmol/L (3.5-5.1); Protein,Urine 1+ (Negative); RBC,Urine 1 /hpf (0-5); Sodium 141 mmol/L (137-145); Specific Gravity,Urine 1.031 (1.001-1.035); Squamous Epithelial Cell,Urine 5 /hpf (0-4); Total Bilirubin 0.4 mg/dL (0.2-1.3); Total Protein 6.8 g/dL (6.3-8.2); WBC,Urine 3 /hpf (0-5)
[2019-06-26 02:24] LABS: Basophils % (A) 0 %; Eosinophils # (A) 0.1 k/uL (0-0.7); Eosinophils % (A) 1 %; HCT 31.3 % (34.0-46.0); HGB 10.8 gm/dL (11.4-16.0); Lymphocytes # (A) 1.6 k/uL (1.0-4.8); Lymphocytes % (A) 21 %; MCH 32.4 pg (25.0-35.0); MCHC 34.6 g/dL (31.0-37.0); MCV 93.6 fL (80.0-100.0); Mean Platelet Volume 6.6; Monocytes # (A) 0.4 k/uL (0-1.0); Monocytes % (A) 6 %; Neutrophils # (A) 5.3 k/uL (1.3-7.7); Neutrophils % (A) 70 %; Platelet Count 195 k/uL (150-450); RBC 3.34 m/uL (3.80-5.40); RDW 13.5 % (11.5-15.5); WBC 7.5 k/uL (3.8-10.6)
[2019-06-26 02:26] LABS: Amphetamine Screen,Urine Not Detected (NotDetected); Barbiturate Screen,Urine Not Detected (NotDetected); Benzodiazepines Screen,Urine Not Detected (NotDetected); Cocaine Screen,Urine Not Detected (NotDetected); Methadone Screen, Urine Not Detected (NotDetected); Opiate Screen,Urine Not Detected (NotDetected); Oxycodone Screen, Urine Not Detected (NotDetected); Phencyclidine Screen,Urine Not Detected (NotDetected); Tricyclic Antidepressant,Urine Not Detected (NotDetected); Urn Cannabinoid Scrn Not Detected (NotDetected)
--- NOTE | 2019-06-26 03:08 | US ---
EXAMINATION TYPE: US OB >= 14 wk fetus DATE OF EXAM: 06/26/2019 COMPARISON: None CLINICAL HISTORY: 16 wks/abd painPelvic pain since yesterday. Hx miscarriage. Hx ovarian cyst. . Unknown LMP. Unclear history from patient. TECHNIQUE: Transabdominal (TA) GESTATIONAL AGE / DATING Physician Established: Due date unknown per patient Dates by LMP: Unknown Dates by First Scan: This is first scan Dates by Current Scan: (17 weeks/6 days) EDC: 11/28/2019 SURVEY IUP: Single PLACENTA: Posterior PREVIA: No previa seen DIMITRY: 13.28 cm Normal CERVICAL LENGTH (transabdominal: norm > 3.0cm): 3.18 cm BIOMETRY PRESENTATION: Vertex LIE: Longitudinal BPD: 4.16 cm 18 weeks / 4 days HC: 15.49 cm 18 weeks / 3 days AC: 11.64 cm 17 weeks / 3 days FL: 2.37 cm 17 weeks / 1 day ESTIMATED WEIGHT IN GRAMS: 193.85 grams ESTIMATED WEIGHT IN LBS/OZ: 0 lbs. 7 oz. WEIGHT PERCENTAGE BASED ON ESTABLISHED DATES: % HC/AC: 1.33 Outside of range FL/AC: 20.33 HEART RATE: 142 bpm RHYTHM: Normal Limited study due to movement. Limited head measurements due to position. IMPRESSION: The ultrasound gestational age is 17 weeks and 6 days. Amniotic fluid is adequate. No complicating pr ocess seen.
[2019-06-26 03:33] VITALS: BP 112/73
== END 2019-06-26 03:35 | disposition home or self-care (01) ==
LOC: EC 00:59
DX: O99.89 Other specified diseases and conditions complicating pregnancy, childbirth and the puerperium (principal); R10.30 Lower abdominal pain, unspecified; M54.5 Low back pain; O99.332 Smoking (tobacco) complicating pregnancy, second trimester; F17.200 Nicotine dependence, unspecified, uncomplicated; Z3A.17 17 weeks gestation of pregnancy
CPT/HCPCS: 36415; 76805; 80053; 80306; 81001; 82150; 83690; 85025; 96360; 96361; 99284

== ENCOUNTER 2019-09-02 13:55 | Emergency (ER) | payer OTHER ==
[2019-09-02 14:20] VITALS: BP 112/65; PULSE 78; RESP 19; TEMP 97.8
--- NOTE | 2019-09-02 14:46 | ED ---
Eye Problem HPI - General Chief complaint: Eye Problems Stated complaint: Eye Issues Time Seen by Provider: 09/02/19 14:33 Source: patient Mode of arrival: ambulatory Limitations: no limitations - History of Present Illness Initial comments: patient is a 34-year-old female presenting to emergency Department with a chief complaint of eye pain. Several days ago patient was diagnosed with bacterial conjunctivitis and prescribed tobramycin. Patient reports that symptoms have not improved and now she is noticing some swelling on the left eye. She also reports some swelling of the left cheek but that has not resolved. She does report some blurry vision in the area but denies any pain with extraocular movements. She reports copious watery discharge. Denies any yellow crusting around the eyes or difficulty opening the eyes. Denies any medication to alleviate the symptoms.denies any trauma to the eye. Denies wearing contactlenses. - Related Data Previous Rx's Medication Instructions Recorded Pnv No.95/Ferrous Fum/Folic AC 1 each PO DAILY #30 tablet 06/26/19 [ Multivitamin Tablet] Amoxicillin/Potassium Clav 1 tab PO BID 6 Days #12 tab 09/02/19 [Augmentin 875-125 Tablet] Allergies Allergy/AdvReac Type Severity Reaction Status Date / Time No Known Allergies Allergy Verified 06/26/19 01:13 Review of Systems ROS Statement: Those systems with pertinent positive or pertinent negative responses have been documented in the HPI. ROS Other: All systems not noted in ROS Statement are negative. Past Medical History Additional Past Medical History / Comment(s): heroin use History of Any Multi-Drug Resistant Organisms: None Reported Past Surgical History: Appendectomy Additional Past Surgical History / Comment(s): 2004 Past Anesthesia/Blood Transfusion Reactions: No Reported Reaction Past Psychological History: No Psychological Hx Reported Smoking Status: Current every day smoker Past Alcohol Use History: Daily, Occasional Past Drug Use History: Heroin - Past Family History Father Family Medical History: No Reported History General Exam Limitations: no limitations General appearance: alert, in no apparent distress Head exam: Present: atraumatic, normocephalic, normal inspection. Absent: other (no facial swelling detected at this time.) Eye exam: Present: normal appearance, PERRL, EOMI, conjunctival injection (left eye), periorbital swelling (mild periorbital swelling in the left eye), other (left eye pressure average of 13mmhg. Right eye pressure average of 10 mmhg.). Absent: periorbital tenderness Pupils: Present: normal accommodation, mydriatic (no ecchymosis or proptosis) ENT exam: Present: normal exam, mucous membranes moist. Absent: normal oropharynx Neck exam: Present: normal inspection, full ROM, lymphadenopathy (anterior radicular lymph node on the left side noted.) Respiratory exam: Present: normal lung sounds bilaterally Cardiovascular Exam: Present: regular rate, normal rhythm, normal heart sounds Extremities exam: Present: normal inspection, full ROM Back exam: Present: normal inspection, full ROM Neurological exam: Present: alert, oriented X3 Psychiatric exam: Present: normal affect, normal mood Skin exam: Present: warm, dry, intact, normal color Course Vital Signs 09/02/19 14:17 Temperature 97.8 F Pulse Rate 78 Respiratory 19 Rate Blood Pressure 112/65 O2 Sat by Pulse 98 Oximetry Medical Decision Making - Medical Decision Making patient is a 34-year-old female presenting to the emergency department with a chief complaint of left eye pain. On exam patient has some left eye swelling with watery discharge. No crusting or facial swelling noted.patient has been using tobramycin with minimal improvement. No pain with extraocular movements. I suspect the patient is developing some periorbital cellulitis. Ocular pressures are within normal range bilaterally. I suspect the patient has a viral conjunctivitis. Although, I do suspect she is also developing periorbital cellulitis. No ecchymosis or proptosis. I will treat the patient with oral Augmentin. Patient advised to follow-up with an employment and claims aide. Strict return parameters were thoroughly discussed the patient was understanding and agreeable. Case discussed with physician. Disposition Clinical Impression: Periorbital cellulitis of left eye Disposition: HOME SELF-CARE Instructions (If sedation given, give patient instructions): Periorbital Cellulitis in Adults (ED) Additional Instructions: Please take prescribed medication as directed. please follow up with ENT.. Please return to emergency department if symptoms worsen. Prescriptions: Amoxicillin/Potassium Clav [Augmentin 875-125 Tablet] 1 tab PO BID 6 Days #12 tab Is patient prescribed a controlled substance at d/c from ED?: No Referrals: Isaura Leonard MD [Primary Care Provider] - 1-2 days Piero Gaines MD [STAFF PHYSICIAN] - 1-2 days Time of Disposition: 15:48
== END 2019-09-02 16:06 | disposition home or self-care (01) ==
LOC: EC 13:55
DX: L03.213 Periorbital cellulitis (principal); F17.200 Nicotine dependence, unspecified, uncomplicated
CPT/HCPCS: 99283

== ENCOUNTER 2019-10-12 15:12 | Outpatient (CLI) | payer OTHER ==
--- NOTE | 2019-10-12 18:41 | P.MSEPDOC ---
Presenting Problems - Arrival Data Date of Arrival on Unit: 10/12/19 Time of Arrival on Unit: 15:12 Mode of Transport: Ambulatory - Complaint OB-Reason for Admission/Chief Complaint: NST Comment: sent from office for non reassuring NST Medical History - Information : 7 Para: 3 Term: 3 : 0 Abortions: Spontaneous or Elective: 3 Number of Living Children: 3 - Gestational Age Gestational Age by INEZ (wks/days): 33 Weeks and 2 Days - History Complications: GDM Review of Systems - Review of Systems Constitutional: No problems Breast: No problems ENT: No problems Cardiovascular: No problems Respiratory: No problems Gastrointestinal: No problems Genitourinary: No problems Musculoskeletal: No problems Neurological: No problems Skin: No problems Physician Notification (Pre) - Notification Comment Comment: sent over from office for non reassuring NST Disposition - Disposition OB Disposition: Triage I agree with the RN Medical Screening Exam: Yes Risk & Benefit of care provided described in d/c instruction: Yes Diagnosis: GESTATIONAL DIABETES MELLITUS IN , UNSP CONTROL
== END 2019-10-12 16:56 | disposition home or self-care (01) ==
LOC: FBPOP 15:12
PROVIDERS: ATTEND Obstetrics & Gynecology
DX: O24.419 Gestational diabetes mellitus in pregnancy, unspecified control (principal); Z3A.33 33 weeks gestation of pregnancy
CPT/HCPCS: 59025; G0463; 99213

== ENCOUNTER 2019-11-27 06:03 | Inpatient (IN) | payer OTHER ==
[2019-11-27] MEDS ORDERED: OXYTOCIN 30 UNITS/500 ML NS 30 UNIT in SALINE 1 500ML.BAG IV SCH (06:15)
[2019-11-27] MEDS ORDERED: OXYTOCIN 10 UNIT/ML 1 ML VIAL IM PRN (06:15)
[2019-11-27] MEDS ORDERED: CARBOPROST TROMETHAMINE 250 MCG/ML 1 ML AMP IM PRN (06:15)
[2019-11-27] MEDS ORDERED: TERBUTALINE 1 MG/ML VIAL SQ PRN (06:15)
[2019-11-27] MEDS ORDERED: LIDOCAINE 0.5% (PF) 5 MG/ML (50 ML SDV) SQ PRN (06:15)
[2019-11-27] MEDS ORDERED: LACTATED RINGERS 1,000 ML IV SCH (06:15)
[2019-11-27] MEDS ORDERED: METHYLERGONOVINE 0.2 MG/ML 1 ML AMP IM PRN (06:15)
[2019-11-27 06:21] LABS: Glucose,Whole Blood 136 mg/dL (75-99)
[2019-11-27 06:54] LABS: Basophils % (A) 0 %; Eosinophils # (A) 0.1 k/uL (0-0.7); Eosinophils % (A) 1 %; HCT 35.7 % (34.0-46.0); HGB 11.5 gm/dL (11.4-16.0); Lymphocytes # (A) 1.4 k/uL (1.0-4.8); Lymphocytes % (A) 18 %; MCHC 32.3 g/dL (31.0-37.0); MCV 96.1 fL (80.0-100.0); Mean Platelet Volume 9.5; Monocytes # (A) 0.4 k/uL (0-1.0); Monocytes % (A) 6 %; Neutrophils # (A) 5.8 k/uL (1.3-7.7); Neutrophils % (A) 73 %; Platelet Count 201 k/uL (150-450); RBC 3.71 m/uL (3.80-5.40); RDW 13.6 % (11.5-15.5); WBC 7.9 k/uL (3.8-10.6)
[2019-11-27 07:30] LABS: Glucose,Whole Blood 121 mg/dL (75-99)
[2019-11-27 08:47] LABS: Glucose,Whole Blood 125 mg/dL (75-99)
[2019-11-27 09:36] LABS: Glucose,Whole Blood 116 mg/dL (75-99)
[2019-11-27] MEDS ORDERED: diphenhydrAMINE 50 MG/ML 1 ML VIAL IVP PRN ×2 (12:41)
[2019-11-27] MEDS ORDERED: diphenhydrAMINE 25 MG CAP PO PRN (12:41)
[2019-11-27] MEDS ORDERED: HYDROCORTISONE 2.5% RECTAL CREAM 30 GM TUBE RECTAL PRN (12:41)
[2019-11-27] MEDS ORDERED: SIMETHICONE 80 MG CHEWABLE PO PRN (12:41)
[2019-11-27] MEDS ORDERED: LANOLIN CREAM 5 GM TUBE TOPICAL PRN (12:41)
[2019-11-27] MEDS ORDERED: diphenhydrAMINE 50 MG CAP PO PRN (12:41)
[2019-11-27] MEDS ORDERED: BENZOCAINE/MENTHOL SPRAY 1 GM/SPRAY AEROSOL TOPICAL PRN (12:41)
[2019-11-27] MEDS ORDERED: WITCH HAZEL 1 EACH MED..PAD TOPICAL PRN (12:41)
[2019-11-27] MEDS ORDERED: ACETAMINOPHEN TAB 325 MG TAB PO PRN (12:41)
[2019-11-27] MEDS ORDERED: ZOLPIDEM 5 MG TAB PO PRN (12:41)
--- NOTE | 2019-11-27 12:44 | P.HPOB ---
History of Present Illness H&P Date: 11/27/19 Chief Complaint: Induction of labor 34-year-old presents at 39 weeks and 6 days for induction of labor. She has gestational diabetes on insulin, blood sugar this morning started at 136. heart tones are 140 with moderate variability. Her cervix is 3 cm dilated, 80% effaced, and -2 station. She is mary irregularly. Review of Systems All systems: negative Constitutional: Denies chills, Denies fever Eyes: denies blurred vision, denies pain Ears, nose, mouth and throat: Denies headache, Denies sore throat Cardiovascular: Denies chest pain, Denies shortness of breath Respiratory: Denies cough Gastrointestinal: Denies abdominal pain, Denies diarrhea, Denies nausea, Denies vomiting Genitourinary: Denies dysuria, Denies hematuria Musculoskeletal: Denies myalgias Integumentary: Denies pruritus, Denies rash Neurological: Denies numbness, Denies weakness Psychiatric: Denies anxiety, Denies depression Endocrine: Denies fatigue, Denies weight change Past Medical History Additional Past Medical History / Comment(s): heroin use in the distant past. Hepatitis c History of Any Multi-Drug Resistant Organisms: None Reported Past Surgical History: Appendectomy Additional Past Surgical History / Comment(s): 2004 Past Anesthesia/Blood Transfusion Reactions: No Reported Reaction Past Psychological History: No Psychological Hx Reported Smoking Status: Current every day smoker Past Alcohol Use History: None Reported Past Drug Use History: Heroin (In the distant past) - Past Family History Father Family Medical History: No Reported History Medications and Allergies Home Medications Medication Instructions Recorded Confirmed Type Pnv No.95/Ferrous Fum/Folic AC 1 each PO DAILY #30 tablet 06/26/19 11/27/19 Rx [ Multivitamin Tablet] metFORMIN HCL 500 mg PO BID 10/12/19 11/27/19 History Allergies Allergy/AdvReac Type Severity Reaction Status Date / Time No Known Allergies Allergy Verified 11/27/19 06:15 Exam Osteopathic Statement: *. No significant issues noted on an osteopathic structural exam other than those noted in the History and Physical/Consult. Vital Signs Temp Pulse Resp BP Pulse Ox 11/27/19 12:33 97.2 F L 72 16 115/56 11/27/19 12:11 81 16 104/62 11/27/19 11:41 74 16 112/76 03/13/20 11:26 79 16 108/57 11/27/19 11:11 86 16 110/57 11/27/19 10:56 96.5 F L 84 16 112/56 11/27/19 10:41 96.4 F L 88 16 123/58 11/27/19 06:20 97.1 F L 91 16 112/58 96 Intake and Output 11/26/19 11/27/19 11/27/19 22:59 06:59 14:59 Intake Total 600 Output Total 100 Balance 500 Intake: IV 600 Output: Urine 100 Other: Weight 78.925 kg Heart: Regular rate and rhythm Lungs: Clear to auscultation bilaterally Abdomen: Soft, nontender Extremities: Negative Homans sign Results Result Diagrams: 11/27/19 06:35 Abnormal Lab Results - Last 24 Hours (Table) 11/27/19 11/27/19 11/27/19 Range/Units 06:19 06:35 07:28 RBC 3.71 L (3.80-5.40) m/uL POC Glucose (mg/dL) 136 H 121 H (75-99) mg/dL 11/27/19 11/27/19 Range/Units 08:36 09:26 RBC (3.80-5.40) m/uL POC Glucose (mg/dL) 125 H 116 H (75-99) mg/dL Assessment and Plan (1) Normal labor Current Visit: Yes Status: Acute Code(s): O80 - ENCOUNTER FOR FULL-TERM UNCOMPLICATED DELIVERY; Z37.9 - OUTCOME OF DELIVERY, UNSPECIFIED SNOMED Code(s): 31550515 (2) Hepatitis C Current Visit: No Status: Acute Code(s): B19.20 - UNSPECIFIED VIRAL HEPATITIS C WITHOUT HEPATIC COMA SNOMED Code(s): 43200723 Plan: 1. Induction of labor with amniotomy and Pitocin 2. Anticipate normal vaginal delivery
[2019-11-27] MEDS ORDERED: OXYTOCIN 20 UNITS/1000 ML NS 1,000 ML IV SCH (12:45)
--- NOTE | 2019-11-27 12:45 | P.PROBDLV ---
Vaginal Delivery Note - . Vaginal Delivery Note: 34-year-old presents at 39 weeks and 6 days for induction of labor. She has gestational diabetes on insulin, blood sugar this morning started at 136. heart tones are 140 with moderate variability. Her cervix is 3 cm dilated, 80% effaced, and -2 station. She is mary irregularly. Pitocin was started. Amniotomy performed at 7 AM and clear fluid noted. Her cervix was completely dilated at 9:54 AM. She pushed, and delivered a viable male over intact perineum at 1028. Head delivered OP, anterior shoulder delivered gentle downward guidance of the posterior shoulder and rest of the body. Apgars 9, 9, weight 7 lbs. 7 oz. Placenta delivered spontaneously, intact with three- vessel cord at 10:33 AM. Vagina, cervix, and perineum were inspected. Right labial laceration was repaired with 3-0 Vicryl. Estimated blood loss 200 mL. Mother and baby in stable condition.
[2019-11-27] MEDS: IBUPROFEN 600 MG TAB PO PRN ×2 (14:02→19:33)
[2019-11-27 20:30] VITALS: RESP 18
[2019-11-27] MEDS: SENNOSIDES-DOCUSATE SODIUM 1 EACH TAB PO SCH (20:35)
[2019-11-28 07:13] LABS: Basophils % (A) 0 %; Eosinophils # (A) 0.1 k/uL (0-0.7); Eosinophils % (A) 1 %; HCT 35.4 % (34.0-46.0); HGB 11.4 gm/dL (11.4-16.0); Lymphocytes # (A) 1.7 k/uL (1.0-4.8); Lymphocytes % (A) 17 %; MCH 31.3 pg (25.0-35.0); MCHC 32.1 g/dL (31.0-37.0); MCV 97.6 fL (80.0-100.0); Mean Platelet Volume 9.8; Monocytes # (A) 0.6 k/uL (0-1.0); Monocytes % (A) 6 %; Neutrophils # (A) 7.5 k/uL (1.3-7.7); Neutrophils % (A) 75 %; Platelet Count 175 k/uL (150-450); RBC 3.63 m/uL (3.80-5.40); RDW 13.6 % (11.5-15.5); WBC 10.1 k/uL (3.8-10.6)
[2019-11-28] MEDS: IBUPROFEN 600 MG TAB PO PRN (08:24)
[2019-11-28] MEDS: SENNOSIDES-DOCUSATE SODIUM 1 EACH TAB PO SCH (08:24)
[2019-11-28 09:50] VITALS: BP 121/75; PULSE 84; TEMP 98
--- NOTE | 2019-11-28 09:58 | P.DS ---
Providers Date of admission: 11/27/19 06:03 Expected date of discharge: 11/28/19 Attending physician: Haven Caceres Primary care physician: Stated None - Discharge Diagnosis(es) (1) Normal labor Current Visit: Yes Status: Resolved (2) Hepatitis C Current Visit: No Status: Acute (3) Normal vaginal delivery Current Visit: No Status: Acute Hospital Course: Patient presented for induction of labor. She underwent a normal vaginal delivery. Her course was uncomplicated. She'll be discharged home day #1 in stable condition to follow-up with me in 6 weeks. Plan - Discharge Summary New Discharge Prescriptions: New Ibuprofen [Motrin] 600 mg PO Q6HR PRN #30 tab PRN Reason: Mild Pain Or Fever >= 100.5 No Action Pnv No.95/Ferrous Fum/Folic AC [ Multivitamin Tablet] 1 each PO DAILY #30 tablet metFORMIN HCL 500 mg PO BID Discharge Medication List Pnv No.95/Ferrous Fum/Folic AC [ Multivitamin Tablet] 1 each PO DAILY #30 tablet 06/26/19 [Rx] metFORMIN HCL 500 mg PO BID 10/12/19 [History] Ibuprofen [Motrin] 600 mg PO Q6HR PRN #30 tab 11/28/19 [Rx] Follow up Appointment(s)/Referral(s): Haven Caceres DO [Doctor of Osteopathic Medicine] - 6 Weeks Discharge Disposition: HOME SELF-CARE
== END 2019-11-28 13:49 | disposition home or self-care (01) | DRG 806 ==
LOC: 4FBP 06:03
PROVIDERS: ADMIT Obstetrics & Gynecology; ATTEND Obstetrics & Gynecology
PROC: 10E0XZZ Delivery of Products of Conception, External Approach (ICD-10-PCS; principal; 2019-11-27)
PROC: 10907ZC Drainage of Amniotic Fluid, Therapeutic from Products of Conception, Via Natural or Artificial Opening (ICD-10-PCS; principal; 2019-11-27)
PROC: 0HQ9XZZ Repair Perineum Skin, External Approach (ICD-10-PCS; principal; 2019-11-27)
DX: O24.424 Gestational diabetes mellitus in childbirth, insulin controlled (principal); O98.42 Viral hepatitis complicating childbirth; Z37.0 Single live birth; Z3A.39 39 weeks gestation of pregnancy; Z79.84 Long term (current) use of oral hypoglycemic drugs; O99.334 Smoking (tobacco) complicating childbirth; O70.0 First degree perineal laceration during delivery; B19.20 Unspecified viral hepatitis C without hepatic coma; F17.200 Nicotine dependence, unspecified, uncomplicated
CPT/HCPCS: 85025; 86850; 86900; 86901

== ENCOUNTER 2020-01-09 17:59 | Emergency (ER) | payer OTHER ==
[2020-01-09 18:07] VITALS: BP 118/66; PULSE 78; RESP 18; TEMP 98.3
[2020-01-09] MEDS ORDERED: KETOROLAC 60 MG/2 ML VIAL IM STA (18:57)
--- NOTE | 2020-01-09 18:58 | ED ---
Back Pain HPI - General Chief Complaint: Back Pain/Injury Stated Complaint: lower back pain/hip Time Seen by Provider: 01/09/20 18:13 Source: patient Limitations: no limitations - History of Present Illness Initial Comments: Patient is a 34-year-old female presenting to the emergency Department with complaints of left low back pain with some radiation into the left hip. Patient states his pain started approximately 2 weeks ago with some mild left-sided low back pain. Patient states she did does deliver a baby approximately one month ago. No complications since. Patient states over the past week she's been having some increased radiation into her left postieror hip and to her glut muscle. Patient states she has tried Tylenol at home without relief. She denies any fever, chills, saddle paresthesia, numbness and tingling into her extremities. She denies any bowel or bladder incontinence. She has no other complaints at this time. Upon arrival to the ER, her vital signs are stable. - Related Data Home Medications Medication Instructions Recorded Confirmed metFORMIN HCL 500 mg PO BID 10/12/19 11/27/19 Previous Rx's Medication Instructions Recorded Pnv No.95/Ferrous Fum/Folic AC 1 each PO DAILY #30 tablet 06/26/19 [ Multivitamin Tablet] Ibuprofen [Motrin] 600 mg PO Q6HR PRN #30 tab 11/28/19 Cyclobenzaprine [Flexeril] 5 mg PO BID PRN #10 tablet 01/09/20 Allergies Allergy/AdvReac Type Severity Reaction Status Date / Time No Known Allergies Allergy Verified 01/09/20 18:07 Review of Systems ROS Statement: Those systems with pertinent positive or pertinent negative responses have been documented in the HPI. ROS Other: All systems not noted in ROS Statement are negative. 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 Hepatitis c History of Any Multi-Drug Resistant Organisms: None Reported Past Surgical History: Appendectomy Additional Past Surgical History / Comment(s): 2004 Past Anesthesia/Blood Transfusion Reactions: No Reported Reaction Past Psychological History: No Psychological Hx Reported Smoking Status: Current every day smoker Past Alcohol Use History: Occasional Past Drug Use History: None Reported - Past Family History Father Family Medical History: No Reported History General Exam - General Exam Comments Initial Comments: GENERAL: Well-appearing, well-nourished and in no acute distress. HEAD: Atraumatic, normocephalic. EYES: Pupils equal round and reactive to light, extraocular movements intact, sclera anicteric, conjunctiva are normal. ENT: TMs normal, nares patent, oropharynx clear without exudates. Moist mucous membranes. NECK: Normal range of motion, supple without lymphadenopathy or JVD. LUNGS: Breath sounds clear to auscultation bilaterally and equal. No wheezes rales or rhonchi. HEART: Regular rate and rhythm without murmurs, rubs or gallops. ABDOMEN: Soft, nontender, normoactive bowel sounds. No guarding, no rebound. No masses appreciated. : Deferred EXTREMITIES: Normal range of motion, no pitting or edema. No clubbing or cyanosis. Strength is 5 out of 5 lower extremities. Sensation is equal and bilateral. Patient has increase in pain with trunk flexion. Patient has mild pain with palpation into the left gluteus. NEUROLOGICAL: Normal speech, normal gait. PSYCH: Normal mood, normal affect. SKIN: Warm, Dry, normal turgor, no rashes or lesions noted. Limitations: no limitations Course Vital Signs 01/09/20 18:03 Temperature 98.3 F Pulse Rate 78 Respiratory 18 Rate Blood Pressure 118/66 O2 Sat by Pulse 99 Oximetry Medical Decision Making - Medical Decision Making Patient is a 34-year-old female presenting with left low back pain is increasing with past 2 weeks. Patient's exam is consistent with left-sided sciatica. Patient did recently have a baby approximately a month and a half ago. No complications since. Patient reports no injuries or trauma or falls. I discussed the patient and her symptoms are most likely related to left-sided sciatica. I recommended anti-inflammatories as well as a trial of muscle relaxer. We also discussed using heat to the area and gentle stretching. Patient is stable for discharge and she is in agreement with this plan of care. Return parameters were discussed with the patient she verbalized understanding. Disposition Clinical Impression: Low back pain with left-sided sciatica Disposition: HOME SELF-CARE Condition: Stable Instructions (If sedation given, give patient instructions): Sciatica (ED) Additional Instructions: Please return to the Emergency Department if symptoms worsen or any other concerns. May continue to alternate between Tylenol and Motrin for pain control. Recommend using heat to the area as well as gentle stretching. A trial of a muscle relaxer at nighttime. Follow up with PCP if symptoms persist. Prescriptions: Cyclobenzaprine [Flexeril] 5 mg PO BID PRN #10 tablet PRN Reason: Muscle Spasm Is patient prescribed a controlled substance at d/c from ED?: No Referrals: None,Stated [Primary Care Provider] - 1-2 days
== END 2020-01-09 19:13 | disposition home or self-care (01) ==
LOC: EC 17:59
DX: M54.42 Lumbago with sciatica, left side (principal); F17.200 Nicotine dependence, unspecified, uncomplicated; Z79.84 Long term (current) use of oral hypoglycemic drugs
CPT/HCPCS: 99283; 96372; J1885

== ENCOUNTER 2020-08-23 22:29 | Emergency (ER) | payer OTHER ==
[2020-08-23 22:36] VITALS: BP 125/81; PULSE 99; RESP 20; TEMP 98.1
--- NOTE | 2020-08-23 23:43 | ED ---
Back Pain HPI - General Chief Complaint: Back Pain/Injury Stated Complaint: Back Pain Time Seen by Provider: 08/23/20 23:10 Source: patient Limitations: no limitations - History of Present Illness Initial Comments: Patient is a 35-year-old female, currently about 4 months , presenting to emergency Department with complaints of left-sided sciatic pain increasing over the past couple weeks. Patient states she has a history of sciatica on the same side with her last . Patient denies any falls or trauma. She denies any saddle paresthesias, she denies any bowel or bladder incontinence. She denies any abdominal pain or vaginal bleeding. She states she tried taking Tylenol last couple days but that is not helping. She has not talked to her FINAL CLEANER about this yet. Patient has no further complaints at this time. Upon arrival to the ER, vitals are stable. - Related Data Home Medications Medication Instructions Recorded Confirmed metFORMIN HCL 500 mg PO BID 10/12/19 11/27/19 Previous Rx's Medication Instructions Recorded Pnv No.95/Ferrous Fum/Folic AC 1 each PO DAILY #30 tablet 06/26/19 [ Multivitamin Tablet] Ibuprofen [Motrin] 600 mg PO Q6HR PRN #30 tab 11/28/19 Cyclobenzaprine [Flexeril] 5 mg PO BID PRN #10 tablet 01/09/20 Allergies Allergy/AdvReac Type Severity Reaction Status Date / Time No Known Allergies Allergy Verified 08/23/20 22:36 Review of Systems ROS Statement: Those systems with pertinent positive or pertinent negative responses have been documented in the HPI. ROS Other: All systems not noted in ROS Statement are negative. 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 Hepatitis c History of Any Multi-Drug Resistant Organisms: None Reported Past Surgical History: Appendectomy Additional Past Surgical History / Comment(s): 2004 Past Anesthesia/Blood Transfusion Reactions: No Reported Reaction Past Psychological History: No Psychological Hx Reported Smoking Status: Current every day smoker Past Alcohol Use History: Occasional Past Drug Use History: None Reported - Past Family History Father Family Medical History: No Reported History General Exam - General Exam Comments Initial Comments: GENERAL: Patient is well-developed and well-nourished. Patient is nontoxic and in no acute distress. HEAD: Atraumatic, normocephalic. EYES: Pupils equal round and reactive to light, extraocular movements intact, sclera anicteric, conjunctiva are normal. Eyelids were unremarkable. ENT: TMs normal, nares patent, oropharynx clear without exudates. Moist mucous membranes. NECK: Normal range of motion, supple without lymphadenopathy or JVD. LUNGS: Unlabored respirations. Breath sounds clear to auscultation bilaterally and equal. No wheezes rales or rhonchi. HEART: Regular rate and rhythm without murmurs, rubs or gallops. ABDOMEN: Soft, nontender, normoactive bowel sounds. No guarding, no rebound. No masses appreciated. : Deferred MUSCULOSKELETAL: Normal extremities with adequate strength and normal range of motion, no pitting or edema. No clubbing or cyanosis. No pain to palpation of the lumbar spine, mild pain in the left gluteal. NEUROLOGICAL: Patient is alert and oriented x 3. Motor and sensory are also intact. Cranial nerves II through XII grossly intact. Symmetrical smile. Normal speech, normal gait. PSYCH: Normal mood, normal affect. SKIN: Warm, Dry, normal turgor, no rashes or lesions noted. Limitations: no limitations Course Vital Signs 08/23/20 22:33 Temperature 98.1 F Pulse Rate 99 Respiratory 20 Rate Blood Pressure 125/81 O2 Sat by Pulse 99 Oximetry Medical Decision Making - Medical Decision Making Patient is a 35-year-old female here with left-sided low back and sciatic pain has been increasing the past few weeks. She is currently about 4 months . No abdominal pain or vaginal bleeding. Her exam is unremarkable. heart tones were osculated, 145-1 60 bpm. I discussed with patient that she needs to continue with Tylenol, stretching, heat to the area. Unfortunately secondary to the she cannot take NSAIDs or steroids at this time. If symptoms persists she needs to follow up with her OB or her PCP, maybe a trial of physical therapy. He is in agreement with this plan of care. She is stable for discharge. Disposition Clinical Impression: Left-sided low back pain with sciatica, Disposition: HOME SELF-CARE Condition: Stable Instructions (If sedation given, give patient instructions): Sciatica (ED) Additional Instructions: Please return to the Emergency Department if symptoms worsen or any other concerns. May continue with Tylenol as needed for discomfort. Recommend stretches as discussed, heat to the area, trial of physical therapy if symptoms do not improve. Follow-up with your FINAL CLEANER. Is patient prescribed a controlled substance at d/c from ED?: No Referrals: None,Stated [Primary Care Provider] - 1-2 days
== END 2020-08-23 23:55 | disposition home or self-care (01) ==
LOC: EC 22:29
DX: O99.891 Other specified diseases and conditions complicating pregnancy (principal); M54.42 Lumbago with sciatica, left side; O99.330 Smoking (tobacco) complicating pregnancy, unspecified trimester; F17.200 Nicotine dependence, unspecified, uncomplicated; Z79.84 Long term (current) use of oral hypoglycemic drugs; Z90.89 Acquired absence of other organs
CPT/HCPCS: 99283

== ENCOUNTER 2020-11-21 11:25 | Outpatient (CLI) | payer OTHER ==
[2020-11-21 13:11] VITALS: BP 101/57; PULSE 76; RESP 16; TEMP 97.8
--- NOTE | 2020-12-10 08:44 | P.MSEPDOC ---
Presenting Problems - Arrival Data Date of Arrival on Unit: 11/21/20 Time of Arrival on Unit: 12:00 Mode of Transport: Wheelchair - Complaint OB-Reason for Admission/Chief Complaint: Pain Comment: low back and leg pain radiating down left lag. has had for two weeks now 8-10 pain and constrant. " nothing seems to work for. pain Medical History - Information : 5 Para: 2 Term: 2 Number of Living Children: 2 - Gestational Age Gestational Age by INEZ (wks/days): 33 Weeks and 2 Days Review of Systems - Review of Systems Constitutional: No problems Breast: No problems ENT: No problems Cardiovascular: No problems Respiratory: No problems Gastrointestinal: No problems Genitourinary: No problems Musculoskeletal: No problems Neurological: No problems Skin: No problems Comment: just severe low back pain. "i dont think i can work today" Vital Signs - Temperature Temperature: 97.8 F Temperature Source: Temporal Artery Scan - Pulse Right Radial Pulse Rate: 76 Pulse Assessment Method: Automatic Cuff - Respirations Respiratory Rate: 16 Oxygen Delivery Method: Room Air O2 Sat by Pulse Oximetry: 98 - Blood Pressure Left Arm Blood Pressure: 101/57 Blood Pressure Mean: 71 Blood Pressure Source: Automatic Cuff Medical Screen Scoring (Pre) - Cervical Exam Dilation: Exam Deferred Effacement: Exam Deferred Membranes: Intact - Uterine Contractions Frequency: N/A Duration: N/A Intensity: N/A - Maternal Vital Signs Maternal Temperature: N/A Maternal Blood Pressure: N/A Signs of Preeclampsia: N/A Maternal Respirations: N/A - Maternal Trauma Maternal Trauma: N/A - Assessment - Baby A Baseline FHR: 130 Heart Rate - NICHD Category: Category I (Normal) = 0 NST: Reactive Position: N/A - Total Score - Baby A Total Score - Baby A: 0 - Total Score - Baby B Total Score - Baby B: 0 - Total Score - Baby C Total Score - Baby C: 0 - Level of Risk - Baby A Level of Risk - Baby A: Low (0-5) - Level of Risk - Baby B Level of Risk - Baby B: Low (0-5) - Level of Risk - Baby C Level of Risk - Baby C: Low (0-5) Physician Notification (Pre) - Physician Notified Physician Notified Date: 11/21/20 Physician Notified Time: 12:45 New Order Received: Yes (Home with instructions) - Notification Comment Comment: to see dr figueredo tomorrow. rest until seeing tomorrow Disposition - Disposition OB Disposition: Discharge to home Discharge Date: 11/21/20 Discharge Time: 13:00 I agree with the RN Medical Screening Exam: Yes Case reviewed; plan agreed upon as documented in EMR&OBIX.: Yes Diagnosis: LOW BACK PAIN
== END 2020-11-21 13:00 | disposition home or self-care (01) ==
LOC: FBPOP 11:25
PROVIDERS: ATTEND Obstetrics & Gynecology
DX: O26.893 Other specified pregnancy related conditions, third trimester (principal); Z3A.33 33 weeks gestation of pregnancy
CPT/HCPCS: 59025; G0463; 99213

== ENCOUNTER → 2020-12-14 | Outpatient (CLI) | payer OTHER ==
--- NOTE | 2020-12-14 13:44 | US ---
EXAMINATION TYPE: US OB BPP wo non-stress DATE OF EXAM: 12/14/2020 COMPARISON: NONE CLINICAL HISTORY: O09.521, O24.4. EXAM PERFORMED: Transabdominal (TA) BPP PARAMETERS: PRESENTATION: Vertex HEART RATE: 138 bpm RHYTHM: Normal DIMITRY: 10.4 DIAPHRAGM IMAGED: yes BPP SCORIN. Breathin (1 episode of breathing of 30 second duration in 30 minutes of scanning time) 2. Movement: 2 (at least 3 discrete body movements in 30 minutes) 3. Tone: 2 (1 episode of active flexion/extension of limb) 4. DIMITRY: 2 (DIMITRY index > 5cm) TOTAL SCORE: 8 / 8 Impression: 1. Normal biophysical profile scoring 8 out of 8 points. 2. Cardiac activity measures 138 bpm during this exam.
== END | disposition home or self-care (01) ==
LOC: RADUSWWP 08:27
PROVIDERS: ATTEND Obstetrics & Gynecology
DX: O09.521 Supervision of elderly multigravida, first trimester (principal); O24.419 Gestational diabetes mellitus in pregnancy, unspecified control; Z3A.00 Weeks of gestation of pregnancy not specified
CPT/HCPCS: 76819

== ENCOUNTER → 2020-12-22 | Outpatient (CLI) | payer OTHER ==
--- NOTE | 2020-12-22 09:45 | US ---
EXAMINATION TYPE: US OB BPP wo non-stress DATE OF EXAM: 12/22/2020 COMPARISON: NONE CLINICAL HISTORY: O24.4 GDM. EXAM PERFORMED: Transabdominal (TA) BPP PARAMETERS: PRESENTATION: Vertex HEART RATE: 144 bpm RHYTHM: Normal DIMITRY: 11.6 DIAPHRAGM IMAGED: BPP SCORIN. Breathin (1 episode of breathing of 30 second duration in 30 minutes of scanning time) 2. Movement: 2 (at least 3 discrete body movements in 30 minutes) 3. Tone: 2 (1 episode of active flexion/extension of limb) 4. DIMITRY: 2 (DIMITRY index > 5cm) TOTAL SCORE: 8 / 8
== END | disposition home or self-care (01) ==
LOC: RADUSWWP 08:58
PROVIDERS: ATTEND Obstetrics & Gynecology
DX: O09.521 Supervision of elderly multigravida, first trimester (principal); O24.419 Gestational diabetes mellitus in pregnancy, unspecified control
CPT/HCPCS: 76819

== ENCOUNTER 2021-01-03 06:07 | Inpatient (IN) | payer OTHER ==
[2021-01-03] MEDS ORDERED: LIDOCAINE 0.5% (PF) 5 MG/ML (50 ML SDV) SQ PRN (06:13)
[2021-01-03] MEDS ORDERED: METHYLERGONOVINE 0.2 MG/ML 1 ML AMP IM PRN (06:13)
[2021-01-03] MEDS ORDERED: CARBOPROST TROMETHAMINE 250 MCG/ML 1 ML AMP IM PRN (06:13)
[2021-01-03] MEDS ORDERED: TERBUTALINE 1 MG/ML VIAL SQ PRN (06:13)
[2021-01-03] MEDS ORDERED: OXYTOCIN 10 UNIT/ML 1 ML VIAL IM PRN (06:13)
[2021-01-03] MEDS ORDERED: LACTATED RINGERS 1,000 ML IV SCH (06:15)
[2021-01-03] MEDS ORDERED: OXYTOCIN 30 UNITS/500 ML NS 30 UNIT in SALINE 1 500ML.BAG IV SCH ×2 (06:15→13:30)
[2021-01-03] MEDS: LACTATED RINGERS 1,000 ML IV SCH ×2 (06:26→15:39)
[2021-01-03 06:27] LABS: Glucose,Whole Blood 132 mg/dL (75-99)
[2021-01-03 07:20] LABS: Basophils % (A) 0 %; Eosinophils # (A) 0.1 k/uL (0-0.7); Eosinophils % (A) 1 %; HCT 33.5 % (34.0-46.0); HGB 11.6 gm/dL (11.4-16.0); Lymphocytes # (A) 1.7 k/uL (1.0-4.8); Lymphocytes % (A) 16 %; MCH 31.8 pg (25.0-35.0); MCHC 34.8 g/dL (31.0-37.0); MCV 91.3 fL (80.0-100.0); Mean Platelet Volume 8.9; Monocytes # (A) 0.7 k/uL (0-1.0); Monocytes % (A) 7 %; Neutrophils # (A) 7.8 k/uL (1.3-7.7); Neutrophils % (A) 74 %; Platelet Count 196 k/uL (150-450); RBC 3.67 m/uL (3.80-5.40); RDW 13.7 % (11.5-15.5); WBC 10.4 k/uL (3.8-10.6)
--- NOTE | 2021-01-03 08:14 | P.HPOB ---
History of Present Illness H&P Date: 01/03/21 Chief Complaint: Induction of Labor 35 year old presents at 39 weeks 3 days for induction of labor. Her cervix is 3/80/-2. She is mary irregularly. heart tones are 135 with moderate variability. Review of Systems All systems: negative Constitutional: Denies chills, Denies fever Eyes: denies blurred vision, denies pain Ears, nose, mouth and throat: Denies headache, Denies sore throat Cardiovascular: Denies chest pain, Denies shortness of breath Respiratory: Denies cough Gastrointestinal: Denies abdominal pain, Denies diarrhea, Denies nausea, Denies vomiting Genitourinary: Denies dysuria, Denies hematuria Musculoskeletal: Denies myalgias Integumentary: Denies pruritus, Denies rash Neurological: Denies numbness, Denies weakness Psychiatric: Denies anxiety, Denies depression Endocrine: Denies fatigue, Denies weight change Past Medical History Additional Past Medical History / Comment(s): Hepatitis c. OB history: 4 previous vaginal deliveries History of Any Multi-Drug Resistant Organisms: None Reported Past Surgical History: Appendectomy Additional Past Surgical History / Comment(s): 2004 Past Anesthesia/Blood Transfusion Reactions: No Reported Reaction Past Psychological History: No Psychological Hx Reported Smoking Status: Former smoker Past Alcohol Use History: Occasional Past Drug Use History: None Reported - Past Family History Father Family Medical History: No Reported History Medications and Allergies Home Medications Medication Instructions Recorded Confirmed Type Pnv No.95/Ferrous Fum/Folic AC 1 each PO DAILY #30 tablet 06/26/19 01/03/21 Rx [ Multivitamin Tablet] Allergies Allergy/AdvReac Type Severity Reaction Status Date / Time No Known Allergies Allergy Verified 01/03/21 06:12 Exam Osteopathic Statement: *. No significant issues noted on an osteopathic structural exam other than those noted in the History and Physical/Consult. Vital Signs Pulse Resp BP Pulse Ox 01/03/21 06:11 84 16 110/59 98 Intake and Output 01/02/21 01/03/21 01/03/21 22:59 06:59 14:59 Other: Weight 79.379 kg Heart: Regular rate and rhythm Lungs: Clear to auscultation bilaterally Abdomen: Soft, nontender Extremities: Negative Homans sign Results Result Diagrams: 01/03/21 06:25 Abnormal Lab Results - Last 24 Hours (Table) 01/03/21 01/03/21 Range/Units 06:23 06:25 RBC 3.67 L (3.80-5.40) m/uL Hct 33.5 L (34.0-46.0) % POC Glucose (mg/dL) 132 H (75-99) mg/dL Assessment and Plan (1) Encounter for induction of labor Current Visit: Yes Status: Acute Code(s): Z34.90 - ENCNTR FOR SUPRVSN OF NORMAL , UNSP, UNSP TRIMESTER SNOMED Code(s): 854002017 (2) Hepatitis C Current Visit: No Status: Acute Code(s): B19.20 - UNSPECIFIED VIRAL HEPATITIS C WITHOUT HEPATIC COMA SNOMED Code(s): 91489038 Plan: 1. Induction of labor with amniotomy and Pitocin 2. Anticipate normal vaginal delivery
[2021-01-03 09:07] LABS: Amphetamine Screen,Urine Not Detected (NotDetected); Barbiturate Screen,Urine Not Detected (NotDetected); Benzodiazepines Screen,Urine Not Detected (NotDetected); Cocaine Screen,Urine Not Detected (NotDetected); Methadone Screen, Urine Not Detected (NotDetected); Opiate Screen,Urine Not Detected (NotDetected); Oxycodone Screen, Urine Not Detected (NotDetected); Phencyclidine Screen,Urine Not Detected (NotDetected); Tricyclic Antidepressant,Urine Not Detected (NotDetected); Urn Cannabinoid Scrn Not Detected (NotDetected)
[2021-01-03] MEDS ORDERED: diphenhydrAMINE 25 MG CAP PO PRN (13:17)
[2021-01-03] MEDS ORDERED: ZOLPIDEM 5 MG TAB PO PRN (13:17)
[2021-01-03] MEDS ORDERED: diphenhydrAMINE 50 MG/ML 1 ML VIAL IVP PRN ×2 (13:17)
[2021-01-03] MEDS ORDERED: LANOLIN CREAM 5 GM TUBE TOPICAL PRN (13:17)
[2021-01-03] MEDS ORDERED: diphenhydrAMINE 50 MG CAP PO PRN (13:17)
[2021-01-03] MEDS ORDERED: HYDROCORTISONE 2.5% RECTAL CREAM 30 GM TUBE RECTAL PRN (13:17)
[2021-01-03] MEDS ORDERED: BENZOCAINE/MENTHOL SPRAY 1 GM/SPRAY AEROSOL TOPICAL PRN (13:17)
[2021-01-03] MEDS ORDERED: ACETAMINOPHEN TAB 325 MG TAB PO PRN (13:17)
[2021-01-03] MEDS ORDERED: SIMETHICONE 80 MG CHEWABLE PO PRN (13:17)
[2021-01-03] MEDS: IBUPROFEN 600 MG TAB PO SCH ×2 (13:25→19:45)
[2021-01-03] MEDS: SENNOSIDES-DOCUSATE SODIUM 1 EACH TAB PO SCH (19:46)
[2021-01-04] MEDS: IBUPROFEN 600 MG TAB PO SCH ×2 (02:24→08:58)
--- NOTE | 2021-01-04 07:14 | P.PROBDLV ---
Vaginal Delivery Note - . Vaginal Delivery Note: 35 year old presents at 39 weeks 3 days for induction of labor. Her cervix is 3/80/-2. She is mary irregularly. heart tones are 135 with moderate variability. Pitocin was started. Amniotomy performed at 7:53 AM and thin meconium fluid noted. She started getting uncomfortable around 9 AM and was completely dilated by 11:25 AM. She pushed, delivered a viable male infant over intact perineum at 11:38 AM. Head delivered OA, nuchal cord 1 easily reduced, anterior shoulder delivered gentle guidance followed by posterior shoulder and rest of body. Nose and mouth bulb suctioned, cord clamped and cut, infant placed mother's abdomen. Apgars 9, 9, weight 7 lbs. 1 oz. Placenta delivered spontaneously, intact with three-vessel cord at 11:41 AM. Vagina, cervix, perineum inspected. A right labial laceration was repaired with 3-0 Vicryl. Estimated blood loss 50 mL. Mother and baby in stable condition.
--- NOTE | 2021-01-04 07:16 | P.DS ---
Providers Date of admission: 01/03/21 06:07 Expected date of discharge: 01/04/21 Attending physician: Haven Caceres Primary care physician: Stated None - Discharge Diagnosis(es) (1) Encounter for induction of labor Current Visit: Yes Status: Resolved (2) Hepatitis C Current Visit: No Status: Resolved (3) Normal vaginal delivery Current Visit: No Status: Acute Hospital Course: Patient presented for induction of labor. She underwent a normal vaginal delivery. course uncomplicated. She'll be discharged home post day #1 in stable condition to follow-up with me in 6 weeks. Plan - Discharge Summary New Discharge Prescriptions: New Ibuprofen [Motrin] 600 mg PO Q6H #30 tab No Action Pnv No.95/Ferrous Fum/Folic AC [ Multivitamin Tablet] 1 each PO DAILY #30 tablet Discharge Medication List Pnv No.95/Ferrous Fum/Folic AC [ Multivitamin Tablet] 1 each PO DAILY #30 tablet 06/26/19 [Rx] Ibuprofen [Motrin] 600 mg PO Q6H #30 tab 01/04/21 [Rx] Follow up Appointment(s)/Referral(s): Haven Caceres DO [Doctor of Osteopathic Medicine] - 6 Weeks Discharge Disposition: HOME SELF-CARE
[2021-01-04 07:17] VITALS: RESP 18; TEMP 97.7
[2021-01-04 08:10] LABS: Basophils % (A) 0 %; Eosinophils # (A) 0.1 k/uL (0-0.7); Eosinophils % (A) 1 %; HCT 34.6 % (34.0-46.0); HGB 11.2 gm/dL (11.4-16.0); Lymphocytes # (A) 1.6 k/uL (1.0-4.8); Lymphocytes % (A) 15 %; MCH 30.5 pg (25.0-35.0); MCHC 32.4 g/dL (31.0-37.0); MCV 94.2 fL (80.0-100.0); Mean Platelet Volume 9.3; Monocytes # (A) 0.6 k/uL (0-1.0); Monocytes % (A) 5 %; Neutrophils # (A) 8.4 k/uL (1.3-7.7); Neutrophils % (A) 77 %; Platelet Count 197 k/uL (150-450); RBC 3.67 m/uL (3.80-5.40); RDW 14.2 % (11.5-15.5); WBC 10.9 k/uL (3.8-10.6)
[2021-01-04] MEDS: SENNOSIDES-DOCUSATE SODIUM 1 EACH TAB PO SCH (08:11)
[2021-01-04 11:53] VITALS: BP 113/69; PULSE 71
== END 2021-01-04 13:15 | disposition home or self-care (01) | DRG 806 ==
LOC: 4FBP 06:07
PROVIDERS: ADMIT Obstetrics & Gynecology; ATTEND Obstetrics & Gynecology
PROC: 10E0XZZ Delivery of Products of Conception, External Approach (ICD-10-PCS; principal; 2021-01-03)
PROC: 0HQ9XZZ Repair Perineum Skin, External Approach (ICD-10-PCS; 2021-01-03)
DX: O69.81X0 Labor and delivery complicated by cord around neck, without compression, not applicable or unspecified (principal); O98.42 Viral hepatitis complicating childbirth; Z37.0 Single live birth; B19.20 Unspecified viral hepatitis C without hepatic coma; O70.0 First degree perineal laceration during delivery; O77.0 Labor and delivery complicated by meconium in amniotic fluid; Z3A.39 39 weeks gestation of pregnancy; Z87.891 Personal history of nicotine dependence
CPT/HCPCS: 80306; 85025; 86850; 86900; 86901; 88307

== ENCOUNTER 2021-03-31 07:04 | Day surgery (SDC) | payer OTHER ==
[2021-03-30 13:38] VITALS: BMI 29.2
[~2021-03-31 07:04] MED LIST: DEXAMETHASONE SOD PHOSPHATE 4 MG/ML 1 ML VIAL IV ONE; LACTATED RINGERS 1,000 ML IV SCH; LIDOCAINE 1% (10MG/ML) FOR IV START INTRADERMA PRN; ONDANSETRON 4 MG/2 ML VIAL IVP ONE; Pre Op ABX Message 1 EACH MISC MISCELLANE ONE; SCOPOLAMINE 1.5MG/72HR PATCH TRANSDERM ONE
--- NOTE | 2021-03-31 07:09 | P.HPOB ---
History of Present Illness H&P Date: 03/31/21 Chief Complaint: family planning 36-year-old presents for laparoscopic tubal ligation. Review of Systems All systems: negative Constitutional: Denies chills, Denies fever Eyes: denies blurred vision, denies pain Ears, nose, mouth and throat: Denies headache, Denies sore throat Cardiovascular: Denies chest pain, Denies shortness of breath Respiratory: Denies cough Gastrointestinal: Denies abdominal pain, Denies diarrhea, Denies nausea, Denies vomiting Genitourinary: Denies dysuria, Denies hematuria Musculoskeletal: Denies myalgias Integumentary: Denies pruritus, Denies rash Neurological: Denies numbness, Denies weakness Psychiatric: Denies anxiety, Denies depression Endocrine: Denies fatigue, Denies weight change Past Medical History Past Medical History: Liver Disease Additional Past Medical History / Comment(s): Hepatitis c History of Any Multi-Drug Resistant Organisms: None Reported Past Surgical History: Appendectomy Additional Past Surgical History / Comment(s): . Past Anesthesia/Blood Transfusion Reactions: No Reported Reaction Smoking Status: Current every day smoker - Past Family History Mother Family Medical History: No Reported History Father Family Medical History: No Reported History Medications and Allergies Home Medications Medication Instructions Recorded Confirmed Type No Known Home Medications 03/30/21 03/30/21 History Allergies Allergy/AdvReac Type Severity Reaction Status Date / Time No Known Allergies Allergy Verified 03/30/21 13:32 Exam Osteopathic Statement: *. No significant issues noted on an osteopathic structural exam other than those noted in the History and Physical/Consult. Heart: Regular rate and rhythm Lungs: Clear to auscultation bilaterally Abdomen: Soft, nontender Extremities: Negative Homans sign Assessment and Plan (1) Family planning Current Visit: Yes Status: Acute Code(s): Z30.09 - ENCOUNTER FOR OTH GENERAL CNSL AND ADVICE ON CONTRACEPTION SNOMED Code(s): 690902809 Plan: 1. Laparoscopic tubal ligation
[2021-03-31] MEDS ORDERED: BUPIVACAINE (PF) 0.25% 30 ML VIAL SQ ONE ×2 (08:16→08:54)
[2021-03-31] MEDS ORDERED: ROCURONIUM 10 MG/ML (5 ML VIAL) IV ONE (08:23)
[2021-03-31] MEDS ORDERED: PROPOFOL 10 MG/ML 20 ML VIAL IV ONE (08:23)
[2021-03-31] MEDS ORDERED: MIDAZOLAM 2 MG/2 ML VIAL ONE (08:23)
[2021-03-31] MEDS ORDERED: LIDOCAINE 1% INJ 10MG/ML (20 ML MDV) ONE (08:23)
[2021-03-31] MEDS ORDERED: GLYCOPYRROLATE 0.2 MG/ML 2 ML VIAL ONE (08:23)
[2021-03-31] MEDS ORDERED: KETOROLAC 15 MG/ML 1 ML VIAL ONE (08:23)
[2021-03-31] MEDS ORDERED: fentaNYL (PF) 50 MCG/ML 2 ML AMP ONE (08:23)
[2021-03-31] MEDS ORDERED: NEOSTIGMINE 1 MG/ML 10 ML VIAL ONE (08:23)
[2021-03-31] MEDS ORDERED: SUCCINYLCHOLINE CHLORIDE 100 MG/5 ML SYR IV ONE (08:23)
--- NOTE | 2021-03-31 09:01 | P.OP ---
Date of Procedure: 03/31/21 Preoperative Diagnosis: 1. family planning Postoperative Diagnosis: 1. family planning Procedure(s) Performed: laparoscopic tubal ligation Anesthesia: ALFREDO Surgeon: Haven Caceres Estimated Blood Loss (ml): 3 IV fluids (ml): 500 Urine output (ml): 10 Pathology: none sent Condition: stable Disposition: floor Operative Findings: Normal uterus, tubes, ovaries. Uterus did sound to 11 cm. Description of Procedure: Patient was taken to the operating room where general anesthesia was obtained without difficulty. She was prepped and draped in normal sterile fashion in the dorsal lithotomy position, legs placed in the [place] stirrups. Bladder drained of all urine. [place] speculum placed in the vagina and the anterior lip the cervix was grasped with single-tooth tenaculum. The uterus is sounded to 11 cm and the kroner manipulator was placed. Attention was then turned to the abdomen and gloves were changed. A 10 mm infraumbilical incision was made the scalpel and 10 mm optical trocar was placed under direct visualization. A 5 mm suprapubic Incision was made and a 5 mm optical trocar was placed under direct visualization. Survey of the pelvis revealed normal uterus tubes and ovaries. The left fallopian tube was grasped with a Kleppinger and fulgurated 2-3 cm on this side in the ampullar portion. The right fallopian tube was grasped with a Kleppinger and fulgurated 2-3 cm in the ampullar portion. All instruments were then removed from the abdomen and vagina. The 10 mm infraumbilical incision was closed with 0 Vicryl and the fascial layer and then 4-0 Vicryl in a subcuticular fashion. The 5 mm incision was closed with 4-0 Vicryl in a subcuticular fashion. Patient tolerated procedure well, sponge and instrument counts correct 2 and she was taken to recovery room in stable condition.
[2021-03-31] MEDS: HYDROmorphone 0.5 MG/0.5 ML SYRINGE IVP PRN ×2 (09:18→09:34)
[2021-03-31 09:21] VITALS: TEMP 97.3
[2021-03-31 09:25] VITALS: RESP 16
[2021-03-31] MEDS ORDERED: LACTATED RINGERS 1,000 ML IV ONE ×2 (09:43)
[2021-03-31 10:31] VITALS: PULSE 50
[2021-03-31 10:52] VITALS: BP 110/72
== END 2021-03-31 11:48 | disposition home or self-care (01) ==
LOC: OR 07:04
PROVIDERS: ATTEND Obstetrics & Gynecology
DX: Z30.2 Encounter for sterilization (principal); B19.20 Unspecified viral hepatitis C without hepatic coma; F17.210 Nicotine dependence, cigarettes, uncomplicated
CPT/HCPCS: 81025; 58670; J2250; J1100; J2710; J2405; J2001; J3010; J1885; J0330; J2704; J1170

== ENCOUNTER 2023-01-18 09:46 | Observation (INO) | payer OTHER ==
[2023-01-18] MEDS ORDERED: KETOROLAC 15 MG/ML 1 ML VIAL IVP STA (10:03)
[2023-01-18] MEDS ORDERED: SODIUM CHLORIDE 0.9% 1,000 ML IV STA (10:03)
--- NOTE | 2023-01-18 10:18 | ED ---
Abdominal Pain HPI - General Chief Complaint: Abdominal Pain Stated Complaint: Abd Pain Time Seen by Provider: 01/18/23 09:59 Source: patient Mode of arrival: ambulatory Limitations: no limitations - History of Present Illness Initial Comments: Patient is a 38-year-old female presenting to the emergency room with complaints of lower abdominal pain which she states is primarily in the pelvic region ongoing for approximately 4 hours with cramping like sensation radiating to her back. She also reports urinary frequency without any dysuria or hematuria. She denies any constipation or diarrhea and reports most recent bowel movement yesterday with which was normal. She denies any other complaints or concerns including any chest pain, shortness of breath, nausea, vomiting, headache, fevers or chills. She has a past medical history significant for hepatitis C. - Related Data Home Medications Medication Instructions Recorded Confirmed No Known Home Medications 01/18/23 01/18/23 Allergies Allergy/AdvReac Type Severity Reaction Status Date / Time No Known Allergies Allergy Verified 01/18/23 11:26 Review of Systems ROS Statement: Those systems with pertinent positive or pertinent negative responses have been documented in the HPI. ROS Other: All systems not noted in ROS Statement are negative. Past Medical History Past Medical History: Liver Disease Additional Past Medical History / Comment(s): Hepatitis c History of Any Multi-Drug Resistant Organisms: None Reported Past Surgical History: Appendectomy Additional Past Surgical History / Comment(s): . Past Anesthesia/Blood Transfusion Reactions: No Reported Reaction Past Psychological History: No Psychological Hx Reported Smoking Status: Current every day smoker Past Alcohol Use History: None Reported Past Drug Use History: Marijuana - Past Family History Mother Family Medical History: No Reported History Father Family Medical History: No Reported History General Exam - General Exam Comments Initial Comments: GENERAL: No acute distress, well developed, well nourished. HEENT: Normocephalic, atraumatic. Pupils equal, round, reactive to light. Moist mucous membranes. LUNGS: No respiratory distress. Clear to auscultation, no adventitious sounds, no use of accessory muscles. HEART: Regular rate and rhythm without murmur, rub, or gallop. ABDOMEN: Normal bowel sounds. Soft, non-tender, non-distended. No bladder distention. BACK: Normal inspection. No CVA tenderness. EXTREMITIES: No edema. No tenderness. Moves all extremities. NEUROLOGIC: Alert & oriented x 3. CN II-XII grossly intact. PSYCHIATRIC: Normal affect and behavior. DERMATOLOGIC: Skin intact, without rashes or lesions noted. Limitations: no limitations Course Vital Signs 01/18/23 01/18/23 01/18/23 09:49 10:43 12:42 Temperature 97.9 F Pulse Rate 81 72 74 Respiratory 20 18 18 Rate Blood Pressure 121/77 100/56 127/79 O2 Sat by Pulse 99 98 99 Oximetry 01/18/23 14:15 Temperature Pulse Rate 84 Respiratory 18 Rate Blood Pressure 142/80 O2 Sat by Pulse 99 Oximetry Medical Decision Making - Medical Decision Making Was pt. sent in by a medical professional or institution (, PA, WILDFIRE PREVENTION SPECIALIST, urgent care, hospital, or long term...) When possible be specific @ -No Did you speak to anyone other than the patient for history (EMS, parent, family, police, friend...)? What history was obtained from this source @ -No Did you review nursing and triage notes (agree or disagree)? Why? @ -I reviewed and agree with nursing and triage notes Were old charts reviewed (outside hosp., previous admission, EMS record, old EKG, old radiological studies, urgent care reports/EKG's, long term records)? Report findings @ -No old charts were reviewed Differential Diagnosis (chest pain, altered mental status, abdominal pain women, abdominal pain men, vaginal bleeding, weakness, fever, dyspnea, syncope, headache, dizziness, GI bleed, back pain, seizure, CVA, palpatations, mental health, musculoskeletal)? @ -Differential Abdominal Pain Women: Appendicitis, Cholecystitis, diverticulosis, ischemic bowel, pancreatitis, hepatitis, UTI, gastroenteritis, AAA, incarcerated hernia, bowel obstruction, constipation, inflammatory bowel, hepatitis, peptic ulcer disease, splenic infarction, perforated viscus, vulvitis, ovarian torsion, PID, kidney stone, placenta abruption, this is not meant to be an all-inclusive list EKG interpreted by me (3pts min.). @ -None done X-rays interpreted by me (1pt min.). @ -KUB demonstrates calculi in the right pelvis region consistent with CT demonstration of hydronephrosis of the right. CT interpreted by me (1pt min.). @ -CT of the abdomen and pelvis demonstrates severe right-sided hydronephrosis, hydroureter, left-sided nonobstructing renal calculi, enlarged uterus with displacement bladder. No evidence of obstruction or free fluid in the abdomen. U/S interpreted by me (1pt. min.). @ -None done What testing was considered but not performed or refused? (CT, X-rays, U/S, labs)? Why? @ -None What meds were considered but not given or refused? Why? @ -None Did you discuss the management of the patient with other professionals (professionals i.e. , PA, WILDFIRE PREVENTION SPECIALIST, lab, RT, psych nurse, social service agency director, cold roll operator, teacher, co founder and chief strategy officer, comp field case manager)? Give summary @ -No Was smoking cessation discussed for >3mins.? @ -No Was critical care preformed (if so, how long)? @ -No Were there social determinants of health that impacted care today? How? (Homelessness, low income, unemployed, alcoholism, drug addiction, transportation, low edu. Level, literacy, decrease access to med. care, [facility], rehab)? @ -No Was there de-escalation of care discussed even if they declined (Discuss DNR or withdrawal of care, Hospice)? DNR status @ -No What co-morbidities impacted this encounter? (DM, HTN, Smoking, COPD, CAD, Ca ncer, CVA, ARF, Chemo, Hep., AIDS, mental health diagnosis, sleep apnea, morbid obesity)? @ -None Was patient admitted / discharged? Hospital course, mention meds given and route, prescriptions, significant lab abnormalities, going to OR and other pertinent info. @ -38-year-old female presenting to the emergency room with complain ts of lower abdominal pain primarily in the pelvic region with urinary frequency without dysuria or hematuria. No indication for diagnostic imaging at this time will obtain CBC, CMP along with urinalysis with reflex to culture and urine hCG. Will give 1 L IV fluid bolus and Toradol for pain and monitor response. Laboratory studies reveal normal CBC, CMP consistent with known hepatic disease with slightly elevated liver enzymes. AST 37, ALC 44, normal alkaline phosphatase, normal bilirubin, amylase and lipase normal. Urinalysis with large amounts of blood; epithelial cells and mucus noted confirming contaminated specimen consequently rare bacteria and small leukocyte esterase not concerning for a urinary tract infection.. Urine hCG not detected. In the absence of urinary tract infection symptoms will proceed with CT of the abdomen and pelvis. Abdominal pain improved with Toradol and IV hydration. CT of the abdomen demonstrates significant right-sided hydronephrosis and hydroureter without visualization of stone. Abdominal pain returned after Toradol will give morphine. Spoke with urology regarding computed tomography scan findings and lack of pain control. Dr. Choudhary advised admission with urology evaluation in morning by himself. Will add KUB for kidney stone workup. Spoke with Dr. Leonard regarding patient presentation and recommendation by urology for admission for severe right-sided hydronephrosis. He is accepting of admission and denies any further orders at this time. Will admit patient in stable condition to medical surgical unit under Dr. Leonard for severe hydronephrosis of right kidney and right hydroureter with urology on consult. Undiagnosed new problem with uncertain prognosis? @ -No Drug Therapy requiring intensive monitoring for toxicity (Heparin, Nitro, Insulin, Cardizem)? @ -No Were any procedures done? @ -No Diagnosis/symptom? @ -Right-sided hydronephrosis and hydroureter Acute, or Chronic, or Acute on Chronic? @ -Acute Uncomplicated (without systemic symptoms) or Complicated (systemic symptoms)? @ -Complicated Side effects of treatment? @ -No Exacerbation, Progression, or Severe Exacerbation? @ -No Poses a threat to life or bodily function? How? (Chest pain, [place], [place], pneumonia, PE, COPD, DKA, ARF, appy, cholecystitis, CVA, Diverticulitis, Homicidal, Suicidal, threat to staff... and all critical care pts) @ -Yes, at risk for worsening hydronephrosis and renal failure. Case discussed with Dr. Houston. - Lab Data Result diagrams: 01/18/23 10:15 01/18/23 10:15 Lab Results 01/18/23 01/18/23 01/18/23 Range/Units 10:15 10:15 10:22 WBC 6.9 (3.8-10.6) k/uL RBC 5.03 (3.80-5.40) m/uL Hgb 14.6 (11.4-16.0) gm/dL Hct 45.2 (34.0-46.0) % MCV 89.8 (80.0-100.0) fL MCH 29.1 (25.0-35.0) pg MCHC 32.4 (31.0-37.0) g/dL RDW 14.1 (11.5-15.5) % Plt Count 297 (150-450) k/uL MPV 8.2 Neutrophils % 63 % Lymphocytes % 30 % Monocytes % 4 % Eosinophils % 1 % Basophils % 0 % Neutrophils # 4.3 (1.3-7.7) k/uL Lymphocytes # 2.1 (1.0-4.8) k/uL Monocytes # 0.3 (0-1.0) k/uL Eosinophils # 0.1 (0-0.7) k/uL Basophils # 0.0 (0-0.2) k/uL Sodium 138 (137-145) mmol/L Potassium 3.6 (3.5-5.1) mmol/L Chloride 102 (98-107) mmol/L Carbon Dioxide 26 (22-30) mmol/L Anion Gap 10 mmol/L BUN 12 (7-17) mg/dL Creatinine 0.62 (0.52-1.04) mg/dL Est GFR (CKD-EPI)AfAm >90 (>60 ml/min/1.73 sqM) Est GFR (CKD-EPI)NonAf >90 (>60 ml/min/1.73 sqM) Glucose 134 H (74-99) mg/dL Calcium 9.5 (8.4-10.2) mg/dL Total Bilirubin 0.8 (0.2-1.3) mg/dL AST 37 H (14-36) U/L ALT 44 H (4-34) U/L Alkaline Phosphatase 61 (38-126) U/L Total Protein 8.3 H (6.3-8.2) g/dL Albumin 4.7 (3.5-5.0) g/dL Amylase 81 (30-110) U/L Lipase 182 (23-300) U/L Urine Color Yellow Urine Appearance Cloudy H (Clear) Urine pH 6.0 (5.0-8.0) Ur Specific Leonore 1.026 (1.001-1.035) Urine Protein 1+ H (Negative) Urine Glucose (UA) Negative (Negative) Urine Ketones Negative (Negative) Urine Blood Large H (Negative) Urine Nitrite Negative (Negative) Urine Bilirubin Negative (Negative) Urine Urobilinogen 3.0 (<2.0) mg/dL Ur Leukocyte Esterase Small H (Negative) Urine RBC >182 H (0-5) /hpf Urine WBC 5 (0-5) /hpf Ur Squamous Epith Cells 13 H (0-4) /hpf Urine Bacteria Rare H (None) /hpf Urine Mucus Many H (None) /hpf Urine HCG, Qual (Not Detectd) 01/18/23 Range/Units 10:22 WBC (3.8-10.6) k/uL RBC (3.80-5.40) m/uL Hgb (11.4-16.0) gm/dL Hct (34.0-46.0) % MCV (80.0-100.0) fL MCH (25.0-35.0) pg MCHC (31.0-37.0) g/dL RDW (11.5-15.5) % Plt Count (150-450) k/uL MPV Neutrophils % % Lymphocytes % % Monocytes % % Eosinophils % % Basophils % % Neutrophils # (1.3-7.7) k/uL Lymphocytes # (1.0-4.8) k/uL Monocytes # (0-1.0) k/uL Eosinophils # (0-0.7) k/uL Basophils # (0-0.2) k/uL Sodium (137-145) mmol/L Potassium (3.5-5.1) mmol/L Chloride (98-107) mmol/L Carbon Dioxide (22-30) mmol/L Anion Gap mmol/L BUN (7-17) mg/dL Creatinine (0.52-1.04) mg/dL Est GFR (CKD-EPI)AfAm (>60 ml/min/1.73 sqM) Est GFR (CKD-EPI)NonAf (>60 ml/min/1.73 sqM) Glucose (74-99) mg/dL Calcium (8.4-10.2) mg/dL Total Bilirubin (0.2-1.3) mg/dL AST (14-36) U/L ALT (4-34) U/L Alkaline Phosphatase (38-126) U/L Total Protein (6.3-8.2) g/dL Albumin (3.5-5.0) g/dL Amylase (30-110) U/L Lipase (23-300) U/L Urine Color Urine Appearance (Clear) Urine pH (5.0-8.0) Ur Specific Leonore (1.001-1.035) Urine Protein (Negative) Urine Glucose (UA) (Negative) Urine Ketones (Negative) Urine Blood (Negative) Urine Nitrite (Negative) Urine Bilirubin (Negative) Urine Urobilinogen (<2.0) mg/dL Ur Leukocyte Esterase (Negative) Urine RBC (0-5) /hpf Urine WBC (0-5) /hpf Ur Squamous Epith Cells (0-4) /hpf Urine Bacteria (None) /hpf Urine Mucus (None) /hpf Urine HCG, Qual Not Detected (Not Detectd) - Radiology Data Radiology results: report reviewed, image reviewed Disposition Clinical Impression: Hydronephrosis Disposition: ADMITTED IP TO THIS [facility] Condition: Stable Time of Disposition: 13:12
[2023-01-18 10:36] LABS: Basophils % (A) 0 %; Eosinophils # (A) 0.1 k/uL (0-0.7); Eosinophils % (A) 1 %; HCT 45.2 % (34.0-46.0); HGB 14.6 gm/dL (11.4-16.0); Lymphocytes # (A) 2.1 k/uL (1.0-4.8); Lymphocytes % (A) 30 %; MCH 29.1 pg (25.0-35.0); MCHC 32.4 g/dL (31.0-37.0); MCV 89.8 fL (80.0-100.0); Mean Platelet Volume 8.2; Monocytes # (A) 0.3 k/uL (0-1.0); Monocytes % (A) 4 %; Neutrophils # (A) 4.3 k/uL (1.3-7.7); Neutrophils % (A) 63 %; Platelet Count 297 k/uL (150-450); RBC 5.03 m/uL (3.80-5.40); RDW 14.1 % (11.5-15.5); WBC 6.9 k/uL (3.8-10.6)
[2023-01-18 10:43] LABS: Appearance,Urine Cloudy (Clear); Bacteria,Urine Rare /hpf; Bilirubin,Urine Negative (Negative); Blood,Urine Large (Negative); Color,Urine Yellow; Glucose,Urine (UA) Negative (Negative); Ketones,Urine Negative (Negative); Leukocyte Esterase,Urine Small (Negative); Mucus,Urine Many /hpf; Nitrite,Urine Negative (Negative); Protein,Urine 1+ (Negative); RBC,Urine >182 /hpf (0-5); Specific Gravity,Urine 1.026 (1.001-1.035); Squamous Epithelial Cell,Urine 13 /hpf (0-4); WBC,Urine 5 /hpf (0-5)
[2023-01-18 10:59] LABS: ALT 44 U/L (4-34); AST 37 U/L (14-36); African American GFR (CKD) >90 (>60 ml/min/1.73 sqM); Albumin 4.7 g/dL (3.5-5.0); Alkaline Phosphatase 61 U/L (38-126); Amylase 81 U/L (30-110); Anion Gap 10 mmol/L; Blood Urea Nitrogen 12 mg/dL (7-17); Calcium 9.5 mg/dL (8.4-10.2); Carbon Dioxide 26 mmol/L (22-30); Chloride 102 mmol/L (98-107); Glucose 134 mg/dL (74-99); Lipase 182 U/L (23-300); Non-African American GFR(CKD) >90 (>60 ml/min/1.73 sqM); Potassium 3.6 mmol/L (3.5-5.1); Sodium 138 mmol/L (137-145); Total Bilirubin 0.8 mg/dL (0.2-1.3); Total Protein 8.3 g/dL (6.3-8.2)
[2023-01-18] MEDS ORDERED: MORPHINE SULFATE 4 MG/ML SYRINGE IVP STA (12:31)
--- NOTE | 2023-01-18 12:37 | CT ---
EXAMINATION TYPE: CT abdomen pelvis wo con DATE OF EXAM: 01/18/2023 COMPARISON: 05/09/2000 and HISTORY: Pelvic pain, UTI CT DLP: 364.2 mGycm Automated exposure control for dose reduction was used. TECHNIQUE: Helical acquisition of images was performed from the lung bases through the pelvis. FINDINGS: LUNG BASES: No significant abnormality is appreciated. LIVER/GB: No significant abnormality is appreciated. PANCREAS: No significant abnormality is seen. SPLEEN: No significant abnormality is seen. ADRENALS: No significant abnormality is seen. KIDNEYS: Left kidney: There is a punctate 2 mm mid pole and lower pole left renal calculus nonobstructing. Right kidney: There is severe right-sided hydronephrosis no definite renal calculus seen. Calculus wi thin the pelvis appears to lie outside the course of the bladder and ureter. Bladder seems to be deco mpressed and somewhat inferior to the displaced by a prominent uterus. No definite ureteral stone. He terogeneous attenuation of the kidney can be associated with medullary sponge kidney/medullary calcin osis or infectious etiology correlate clinically.. ADENOPATHY: None visualized. OSSEOUS STRUCTURES: Severe degenerative disc disease L5-S1 with broad-based disc protrusion or bulgi ng. BOWEL: Bowel gas pattern nonspecific with no obstruction. Postsurgical changes involving the right c olon. OTHER: Uterus appears to be enlarged and could be correlated with the pelvic ultrasound for further e valuation. Aorta of normal caliber. IMPRESSION: 1. THERE IS SEVERE RIGHT HYDRONEPHROSIS AND HYDROURETER. DISTAL PORTION OF THE URETER IS NOT WELL SEE N WITHIN THE PELVIS. THERE ARE NUMEROUS PUNCTATE CALCIFICATIONS WHICH APPEAR TO BE OUTSIDE THE COURSE OF THE SYSTEM. THERE IS A 2 MM CALCIFICATION ON AXIAL IMAGE 116 WHICH COULD REPRESENT A OBSTRUCTI NG UVJ CALCIFICATION WITHIN A DECOMPRESSED BLADDER. 2. NONOBSTRUCTING LEFT NEPHROLITHIASIS. 3. POSTSURGICAL CHANGES #4 UTERUS IS ENLARGED CONSIDER FOLLOW-UP ULTRASOUND.
--- NOTE | 2023-01-18 12:59 | XR ---
EXAMINATION TYPE: XR KUB DATE OF EXAM: 01/18/2023 COMPARISON: CT abdomen and pelvis 01/18/2023 HISTORY: Right hydronephrosis TECHNIQUE: Upright KUB of the abdomen was obtained with 2 radiographs. FINDINGS: Small bowel demonstrates no evidence for dilatation or air fluid levels. Gas and fecal material is seen in non-distended colon. No convincing evidence for pneumoperitoneum. There is a 3 mm calculus in the right pelvis which may represent a phlebolith versus bladder calculus . Right-sided surgical clips in the pelvis. The lung bases are clear. The osseous structures are intact. IMPRESSION: 3 mm calculus in the right pelvis which may represent a phlebolith versus bladder calculus.
[2023-01-18] MEDS ORDERED: KETOROLAC 15 MG/ML 1 ML VIAL IVP PRN (13:10)
[2023-01-18] MEDS ORDERED: HYDROmorphone 1 MG/ML 1 ML SYRINGE IVP PRN (13:10)
[2023-01-18] MEDS ORDERED: ONDANSETRON 4 MG/2 ML VIAL IVP PRN (13:10)
[2023-01-18] MEDS ORDERED: NALOXONE 0.4 MG/ML 1 ML VIAL IV PRN (13:10)
[2023-01-18] MEDS: SODIUM CHLORIDE 0.9% 1,000 ML IV SCH (13:27)
--- NOTE | 2023-01-18 13:55 | P.HPIM ---
History of Present Illness H&P Date: 01/18/23 Tonie Shelton, is a 38-year-old female who presented to [facility] emergency room with a chief complaint of She was evaluated in the emergency room vital examination on presentation revealed a temperature of 97.9 pulse 81 respiration 20 blood pressure 121/77 pulse ox 99% on room air Laboratory data revealed a white blood count of 6.9 hemoglobin 14.6 platelet count 297 sodium 138 potassium 3.6 chloride 102 CO2 26 BUN 12 creatinine 0.6 AST was elevated at 37 ALT slightly elevated at 44 urine analysis revealed cloudy urine with large blood 5 white blood cells in high power carmona and small leukocyte esterase Testing in the emergency room revealed abdomen extremely revealed 3 mm calculus in the right pelvis computed tomography scan of the abdomen and pelvis revealed severe right hydronephrosis and hydroureter, uterus was enlarged was recommendation for follow-up diabetic ultrasound. Patient was admitted to medical floor for further evaluation and treatment Past Medical History Past Medical History: Liver Disease Additional Past Medical History / Comment(s): Hepatitis c History of Any Multi-Drug Resistant Organisms: None Reported Past Surgical History: Appendectomy Additional Past Surgical History / Comment(s): . Past Anesthesia/Blood Transfusion Reactions: No Reported Reaction Past Psychological History: No Psychological Hx Reported Smoking Status: Current every day smoker Past Alcohol Use History: None Reported Past Drug Use History: Marijuana - Past Family History Mother Family Medical History: No Reported History Father Family Medical History: No Reported History Medications and Allergies Home Medications Medication Instructions Recorded Confirmed Type No Known Home Medications 01/18/23 01/18/23 History Allergies Allergy/AdvReac Type Severity Reaction Status Date / Time No Known Allergies Allergy Verified 01/18/23 11:26 Physical Exam Vitals: Vital Signs Temp Pulse Resp BP Pulse Ox 01/18/23 12:42 74 18 127/79 99 01/18/23 10:43 72 18 100/56 98 01/18/23 09:49 97.9 F 81 20 121/77 99 Intake and Output 01/17/23 01/18/23 01/18/23 22:59 06:59 14:59 Other: Weight 54.431 kg In general patient is alert and oriented x 3 in no distress HEENT head normocephalic and atraumatic Neck is supple no JVD no goiter no lymphadenopathy no carotid bruit Chest examination is clear to auscultation no crackles no wheezing Cardiac exam reveals regular heart sounds S1 and S2 no gallops no murmurs Abdomen is soft with tenderness in the right lower quadrant and suprapubic area no palpable masses no organomegaly Extremity exam reveals no edema no cyanosis or clubbing Neurological examination reveals no gross focal deficits Results CBC & Chem 7: 01/18/23 10:15 01/18/23 10:15 Labs: Abnormal Lab Results - Last 24 Hours (Table) 01/18/23 01/18/23 Range/Units 10:15 10:22 Glucose 134 H (74-99) mg/dL AST 37 H (14-36) U/L ALT 44 H (4-34) U/L Total Protein 8.3 H (6.3-8.2) g/dL Urine Appearance Cloudy H (Clear) Urine Protein 1+ H (Negative) Urine Blood Large H (Negative) Ur Leukocyte Esterase Small H (Negative) Urine RBC >182 H (0-5) /hpf Ur Squamous Epith Cells 13 H (0-4) /hpf Urine Bacteria Rare H (None) /hpf Urine Mucus Many H (None) /hpf Assessment and Plan Plan: Severe right hydronephrosis and hydroureter Abdominal pain Likely calculus in the right ureter History of tobacco use At this time patient was seen and examined She was started on IV fluid, and IV dilaudid in the emergency room She was also given a dose of IV ceftriaxone in the emergency room Urology consultation was requested Will follow closely
[2023-01-18 22:17] VITALS: RESP 16
[2023-01-19] MEDS: SODIUM CHLORIDE 0.9% 1,000 ML IV SCH ×2 (00:12→08:52)
[2023-01-19 08:27] VITALS: BP 119/76; PULSE 77; TEMP 98.8
--- NOTE | 2023-01-19 09:34 | P.GSCN ---
History of Present Illness Consult date: 01/19/23 Reason for Consult: Right hydronephrosis History of present illness: This is a 38-year-old female admitted to the hospital with intractable flank pain secondary to right-sided hydronephrosis. Patient indicates having pain right flank with radiation to the right groin. associated with nausea without vomiting. Denies any dysuria or gross hematuria. No previous similar symptoms. No history of kidney stones, or family history of kidney stones. In the ER she underwent a CT abdomen and pelvis that showed evidence of severe right-sided Hydronephrosis, but there was no clear stone along the course of the distal ureter. Her kidney function was stable. This morning she indicated she has almost complete resolution of the pain. Denies any voiding dysfunction. Review of Systems - Constitutional Denies fever, Denies weight loss - EENT Ears, nose, mouth and throat: Denies dysphagia - Cardiovascular Denies chest pain, Denies shortness of breath - Respiratory Denies cough, Denies 7 - Gastrointestinal Reports as per HPI - Genitourinary Genitourinary: Reports flank pain Past Medical History Past Medical History: Liver Disease Additional Past Medical History / Comment(s): Hepatitis c History of Any Multi-Drug Resistant Organisms: None Reported Past Surgical History: Appendectomy Additional Past Surgical History / Comment(s): . Past Anesthesia/Blood Transfusion Reactions: No Reported Reaction Past Psychological History: No Psychological Hx Reported Smoking Status: Current every day smoker Past Alcohol Use History: None Reported Past Drug Use History: Marijuana - Past Family History Mother Family Medical History: No Reported History Father Family Medical History: No Reported History Medications and Allergies Home Medications Medication Instructions Recorded Confirmed Type No Known Home Medications 01/18/23 01/18/23 History Allergies Allergy/AdvReac Type Severity Reaction Status Date / Time No Known Allergies Allergy Verified 01/18/23 11:26 Surgical - Exam Vital Signs Temp Pulse Resp BP Pulse Ox 97.9 F 81 20 121/77 99 01/18/23 09:49 01/18/23 09:49 01/18/23 09:49 01/18/23 09:49 01/18/23 09:49 - General no distress, no pain - Eyes normal ocular movement, no pale - ENT normal nares - Respiratory normal expansion, normal respiratory effort - Abdomen Abdomen: soft, non tender - Psychiatric oriented to time, oriented to person, oriented to place Results - Labs 01/18/23 10:15 01/18/23 10:15 Abnormal Lab Results - Last 24 Hours (Table) 01/18/23 01/18/23 Range/Units 10:15 10:22 Glucose 134 H (74-99) mg/dL AST 37 H (14-36) U/L ALT 44 H (4-34) U/L Total Protein 8.3 H (6.3-8.2) g/dL Urine Appearance Cloudy H (Clear) Urine Protein 1+ H (Negative) Urine Blood Large H (Negative) Ur Leukocyte Esterase Small H (Negative) Urine RBC >182 H (0-5) /hpf Ur Squamous Epith Cells 13 H (0-4) /hpf Urine Bacteria Rare H (None) /hpf Urine Mucus Many H (None) /hpf Diabetes panel 01/18/23 Range/Units 10:15 Sodium 138 (137-145) mmol/L Potassium 3.6 (3.5-5.1) mmol/L Chloride 102 (98-107) mmol/L Carbon Dioxide 26 (22-30) mmol/L BUN 12 (7-17) mg/dL Creatinine 0.62 (0.52-1.04) mg/dL Glucose 134 H (74-99) mg/dL Calcium 9.5 (8.4-10.2) mg/dL AST 37 H (14-36) U/L ALT 44 H (4-34) U/L Alkaline Phosphatase 61 (38-126) U/L Total Protein 8.3 H (6.3-8.2) g/dL Albumin 4.7 (3.5-5.0) g/dL Calcium panel 01/18/23 Range/Units 10:15 Calcium 9.5 (8.4-10.2) mg/dL Albumin 4.7 (3.5-5.0) g/dL Pituitary panel 01/18/23 Range/Units 10:15 Sodium 138 (137-145) mmol/L Potassium 3.6 (3.5-5.1) mmol/L Chloride 102 (98-107) mmol/L Carbon Dioxide 26 (22-30) mmol/L BUN 12 (7-17) mg/dL Creatinine 0.62 (0.52-1.04) mg/dL Glucose 134 H (74-99) mg/dL Calcium 9.5 (8.4-10.2) mg/dL Adrenal panel 01/18/23 Range/Units 10:15 Sodium 138 (137-145) mmol/L Potassium 3.6 (3.5-5.1) mmol/L Chloride 102 (98-107) mmol/L Carbon Dioxide 26 (22-30) mmol/L BUN 12 (7-17) mg/dL Creatinine 0.62 (0.52-1.04) mg/dL Glucose 134 H (74-99) mg/dL Calcium 9.5 (8.4-10.2) mg/dL Total Bilirubin 0.8 (0.2-1.3) mg/dL AST 37 H (14-36) U/L ALT 44 H (4-34) U/L Alkaline Phosphatase 61 (38-126) U/L Total Protein 8.3 H (6.3-8.2) g/dL Albumin 4.7 (3.5-5.0) g/dL Assessment and Plan Assessment: This is a 38-year-old female with severe right-sided hydronephrosis. I reviewed her images which showed evidence of hydronephrosis on the right kidney but no clear ureteral stones, but evaluation is difficult given the multiple phlebolith along the course of the ureter. There is a potential for an obstructive stone along the course of the distal ureter. Given the resolution of her symptoms and normal kidney function no acute intervention at this point. She is stable for discharge from urology standpoint. I discussed with her she will need repeat ultrasound as an outpatient assess resolution of hydronephrosis -Okay for discharge from your standpoint, follow up in 2 weeks (1) Hydronephrosis Current Visit: Yes Status: Acute Code(s): N13.30 - UNSPECIFIED HYDRONEPHROSIS SNOMED Code(s): 64632560
--- NOTE | 2023-01-19 12:54 | P.DS ---
Providers Date of admission: 01/18/23 13:07 Expected date of discharge: 01/19/23 Attending physician: Isaura Leonard Consults: 01/18/23 13:10 Consult Physician Stat Consulting Provider: Ok Nelson Consult Reason/Comments: Hydronephrosis Do you want consulting provider notified?: Already Contacted Primary care physician: Isaura Leonard [facility] Course: Diagnosis on discharge: Severe right hydronephrosis and hydroureter Abdominal pain Likely calculus in the right ureter Urinary tract infection with positive leukocyte esterase in the urine History of tobacco use Hospital course: Tonie Shelton, is a 38-year-old female who presented to [facility] emergency room with a chief complaint of She was evaluated in the emergency room vital examination on presentation revealed a temperature of 97.9 pulse 81 respiration 20 blood pressure 121/77 pulse ox 99% on room air Laboratory data revealed a white blood count of 6.9 hemoglobin 14.6 platelet count 297 sodium 138 potassium 3.6 chloride 102 CO2 26 BUN 12 creatinine 0.6 AST was elevated at 37 ALT slightly elevated at 44 urine analysis revealed cloudy urine with large blood 5 white blood cells in high power carmona and small leukocyte esterase Testing in the emergency room revealed abdomen extremely revealed 3 mm calculus in the right pelvis computed tomography scan of the abdomen and pelvis revealed severe right hydronephrosis and hydroureter, uterus was enlarged was recommendation for follow-up diabetic ultrasound. Patient was admitted to medical floor for further evaluation and treatment On 01/19/2023 patient was seen and examined on the medical floor she is alert and oriented 3 in no apparent distress , however abdominal pain and flank pain has resolved since yesterday , there is no fever or chills no headache or dizziness no chest pain no shortness of breath no cough no nausea or vomiting no abdominal pain no diarrhea and no urinary symptoms. Patient was evaluated by urology and was cleared for discharge. Follow-up with me in the office within 1 week will arrange for outpatient ultrasound and follow-up with urology. Patient Condition at Discharge: Stable Plan - Discharge Summary Discharge Rx Participant: No New Discharge Prescriptions: New cefUROXime axetiL [Cefuroxime] 500 mg PO BID 5 Days #10 tab Ibuprofen 600 mg PO Q8H PRN 10 Days #30 tab PRN Reason: Pain Discharge Medication List Ibuprofen 600 mg PO Q8H PRN 10 Days #30 tab 01/19/23 [Rx] cefUROXime axetiL [Cefuroxime] 500 mg PO BID 5 Days #10 tab 01/19/23 [Rx] Follow up Appointment(s)/Referral(s): Ok Nelson MD [STAFF PHYSICIAN] - 2 Weeks Isaura Leonard MD [Primary Care Provider] - 1-2 days
== END 2023-01-19 16:11 | disposition home or self-care (01) ==
LOC: EC 09:46 → 5NMEDONC 13:07 → INTOOBSV 13:07 → 5NMEDONC 14:26 → UNDODISIN 01-19 16:11
PROVIDERS: ADMIT Internal Medicine; ATTEND Internal Medicine
DX: N13.2 Hydronephrosis with renal and ureteral calculous obstruction (principal); N39.0 Urinary tract infection, site not specified; F17.200 Nicotine dependence, unspecified, uncomplicated; Z86.19 Personal history of other infectious and parasitic diseases
CPT/HCPCS: 96361 ×2; 96366; 96376; 96365; 96375; 99285; 36415; 80053; 82150; 83690; 85025; 81001; 81025; 74018; 74176; G0378 ×2; J2270; J0696 ×2; J1170; J1885 ×2

== ENCOUNTER 2024-03-25 07:37 | Emergency (ER) | payer OTHER ==
[2024-03-25 07:42] VITALS: RESP 18
[2024-03-25] MEDS: DEXAMETHASONE SOD PHOSPHATE 10 MG/ML 1 ML VIAL PO STA (08:14)
--- NOTE | 2024-03-25 08:18 | ED ---
ENT HPI - General Chief complaint: ENT Stated complaint: Sore throat, cough Time Seen by Provider: 03/25/24 07:45 Source: patient, RN notes reviewed Mode of arrival: ambulatory Limitations: no limitations - History of Present Illness Initial comments: 39-year-old female presents emergency department chief complaint of sore throat, cough, congestion for last 3 to 4 days. Patient states that her throat feels like it is very irritated, swollen. Patient states that she does have slightly productive cough denies any sick contacts does report possible fever and chills night sweats. No abdominal complaints no headache or dizziness. - Related Data Previous Rx's Medication Instructions Recorded Ibuprofen 600 mg PO Q8H PRN 10 Days #30 tab 01/19/23 cefUROXime axetiL [Cefuroxime] 500 mg PO BID 5 Days #10 tab 01/19/23 Allergies Allergy/AdvReac Type Severity Reaction Status Date / Time No Known Allergies Allergy Verified 03/25/24 07:41 Review of Systems ROS Statement: Those systems with pertinent positive or pertinent negative responses have been documented in the HPI. ROS Other: All systems not noted in ROS Statement are negative. Past Medical History Past Medical History: Liver Disease Additional Past Medical History / Comment(s): Hepatitis c History of Any Multi-Drug Resistant Organisms: None Reported Past Surgical History: Appendectomy Additional Past Surgical History / Comment(s): . Past Anesthesia/Blood Transfusion Reactions: No Reported Reaction Past Psychological History: No Psychological Hx Reported Smoking Status: Current every day smoker Past Alcohol Use History: Rare Past Drug Use History: Marijuana - Past Family History Mother Family Medical History: No Reported History Father Family Medical History: No Reported History General Exam Limitations: no limitations General appearance: alert, in no apparent distress Head exam: Present: atraumatic, normocephalic, normal inspection Eye exam: Present: normal appearance, PERRL, EOMI. Absent: scleral icterus, conjunctival injection, periorbital swelling ENT exam: Present: normal exam, normal oropharynx, mucous membranes moist Neck exam: Present: normal inspection, full ROM. Absent: tenderness, meningismus, lymphadenopathy Respiratory exam: Present: normal lung sounds bilaterally. Absent: respiratory distress, wheezes, rales, rhonchi, stridor Cardiovascular Exam: Present: regular rate, normal rhythm, normal heart sounds. Absent: systolic murmur, diastolic murmur, rubs, gallop, clicks Course Vital Signs 03/25/24 07:40 Temperature 97.9 F Pulse Rate 76 Respiratory 18 Rate Blood Pressure 144/82 O2 Sat by Pulse 100 Oximetry Medical Decision Making - Medical Decision Making Was pt. sent in by a medical professional or institution (ASHWIN Odell, VET TECH, urgent care, hospital, or [facility]...) When possible be specific @ -No Did you speak to anyone other than the patient for history (EMS, parent, family, police, friend...)? What history was obtained from this source @ -No Did you review nursing and triage notes (agree or disagree)? Why? @ -I reviewed and agree with nursing and triage notes Were old charts reviewed (outside hosp., previous admission, EMS record, old EKG, old radiological studies, urgent care reports/EKG's, [facility] records)? Report findings @ -No old charts were reviewed Differential Diagnosis (chest pain, altered mental status, abdominal pain women, abdominal pain men, vaginal bleeding, weakness, fever, dyspnea, syncope, headache, dizziness, GI bleed, back pain, seizure, CVA, palpatations, mental health, musculoskeletal)? @ -COVID 19, RSV, influenza, pneumonia, acute bronchitis, URI, this list is not all inclusive EKG interpreted by me (3pts min.). @ -None X-rays interpreted by me (1pt min.). @ -Chest ray shows no acute cardiopulmonary process CT interpreted by me (1pt min.). @ -None done U/S interpreted by me (1pt. min.). @ -None done What testing was considered but not performed or refused? (CT, X-rays, U/S, labs)? Why? @ -None What meds were considered but not given or refused? Why? @ -None Did you discuss the management of the patient with other professionals (professionals i.e. ASHWIN Odell, VET TECH, lab, RT, psych nurse, social human services assistants, area director, teacher, [employer] revenue officer, renal case manager)? Give summary @ -No Was smoking cessation discussed for >3mins.? @ -No Was critical care preformed (if so, how long)? @ -No Were there social determinants of health that impacted care today? How? (Homelessness, low income, unemployed, alcoholism, drug addiction, transportation, low edu. Level, literacy, decrease access to med. care, group home, rehab)? @ -No Was there de-escalation of care discussed even if they declined (Discuss DNR or withdrawal of care, Hospice)? DNR status @ -No What co-morbidities impacted this encounter? (DM, HTN, Smoking, COPD, CAD, Cancer, CVA, ARF, Chemo, Hep., AIDS, mental health diagnosis, sleep apnea, morbid obesity)? @ -None Was patient admitted / discharged? Hospital course, mention meds given and route, prescriptions, significant lab abnormalities, going to OR and other pertinent info. @ -Discharge patient has a viral URI negative Cepheid, negative strep and x-ray was unremarkable. Patient discharged in stable condition return parameters jim. Undiagnosed new problem with uncertain prognosis? @ -No Drug Therapy requiring intensive monitoring for toxicity (Heparin, Nitro, Insulin, Cardizem)? @ -No Were any procedures done? @ -No Diagnosis/symptom? @ -Viral URI, pharyngitis Acute, or Chronic, or Acute on Chronic? @ -Acute Uncomplicated (without systemic symptoms) or Complicated (systemic symptoms)? @ -Uncomplicated Side effects of treatment? @ -No Exacerbation, Progression, or Severe Exacerbation? @ -No Poses a threat to life or bodily function? How? (Chest pain, [place], [place], pneumonia, PE, COPD, DKA, ARF, appy, cholecystitis, CVA, Diverticulitis, Homicidal, Suicidal, threat to staff... and all critical care pts) @ -No - Lab Data Lab Results 03/25/24 03/25/24 Range/Units 07:54 08:17 Influenza Type A (PCR) Not Detected (Not Detectd) Influenza Type B (PCR) Not Detected (Not Detectd) RSV (PCR) Not Detected (Not Detectd) SARS-CoV-2 (PCR) Not Detected (Not Detectd) Group A Strep (PCR) NOT DETECTED (Not Detectd) Disposition Clinical Impression: Acute viral pharyngitis, Viral URI Disposition: HOME SELF-CARE Condition: Stable Instructions (If sedation given, give patient instructions): Upper Respiratory Infection (ED) Additional Instructions: Please return to the Emergency Department if symptoms worsen or any other c oncerns. Is patient prescribed a controlled substance at d/c from ED?: No Referrals: Isaura Leonard MD [Primary Care Provider] - 1-2 days Time of Disposition: 09:14
--- NOTE | 2024-03-25 08:49 | XR ---
EXAMINATION TYPE: XR chest 2V DATE OF EXAM: 03/25/2024 COMPARISON: 08/23/2016 INDICATION: Short of breath sore throat and cough TECHNIQUE: Frontal and lateral views of the chest are obtained. FINDINGS: The heart size is normal. The pulmonary vasculature is normal. The lungs are clear. IMPRESSION: 1. No acute pulmonary process.
[2024-03-25 09:33] VITALS: BP 136/78; PULSE 744; TEMP 98
== END 2024-03-25 09:31 | disposition home or self-care (01) ==
LOC: EC 07:37
DX: J02.8 Acute pharyngitis due to other specified organisms (principal); J06.9 Acute upper respiratory infection, unspecified; F17.200 Nicotine dependence, unspecified, uncomplicated
CPT/HCPCS: 99283 ×2; 87651; 87636; 71046; J1100